=== PATIENT | male | born 1940 | race Caucasian/White ===

== ENCOUNTER 2020-01-03 18:26 | Inpatient (IN) | payer MEDICARE, OTHER ==
[2020-01-03] MEDS ORDERED: Acetaminophen 325 MG TAB PO PRN (20:15)
[2020-01-03] MEDS ORDERED: Ondansetron ODT 4 MG TAB SL PRN (20:15)
[2020-01-03] MEDS ORDERED: Nitroglycerin 2% Ointment 1 INCH/1 GM Packet TOP SCH (20:15)
[2020-01-03] MEDS ORDERED: Ondansetron PF 4 MG/2 ML Vial IVP PRN (20:15)
[2020-01-03 21:42] LABS: Troponin I 0.018 ng/mL (< 0.028)
--- NOTE | 2020-01-03 22:35 | PDOC.HHP ---
Hospitalist HPI - History of Present Illness Chest pain History of Present Illness: Mr. Ennis is a 79 year-old male with a PMHx of psoriasis who presents for chest pain. Pt reports that while rowing a boat this afternoon he developed intense 9/10 chest pain that radiated to his back. Pain was constant, stabbing, and lasted approximately 15 minuets. Pain completely resolved after this episode. Denies lightheadedness, changes in vision, weakness/numbness or SOB. Denies any personal or family history of cardiac disease. Pt states that he has no medical problems and generally stays away from hospitals. Does follow with a PCP who he sees every few years. Reports he had a recent physical and that there were no problems, but cannot remember his PCP's name. Denies N/V/D. EKG showed NSR with no ischemic changes. D-dimer mildly elevated at 0.52. CTA negative for PE or any aortic pathology. CXR no acute pathology. Initial troponin 0.012. H/H 14.9/46.6, WBC 7.6. BUN/Cr 15/1.17. Na 138, K 4.1. Pt recei carlos manuel nitro and full strength ASA. Patient transferred from [facility] to [facility] for chest pain r/o. VSS. Hospitalist ROS - Review of Systems Constitutional: denies: fever, chills, sweats, weakness, malaise, other Eyes: denies: pain, vision change, conjunctivae inflammation, eyelid inflammati on, redness, other ENT: denies: ear pain, ear discharge, nose pain, nose discharge, nose congestion, mouth pain, mouth swelling, throat pain, throat swelling, other Respiratory: denies: cough, dry, shortness of breath, hemoptysis, SOB with excertion, pleuritic pain, sputum, wheezing, other Cardiovascular: reports: chest pain. denies: palpitations, orthopnea, paroxysmal noc. dyspnea, edema, light headedness, other Gastrointestinal: denies: nausea, vomiting, abdominal pain, diarrhea, constipation, melena, hematochezia, other Genitourinary: denies: dysuria, frequency, incontinence, hematuria, retention, other Musculoskeletal: denies: neck pain, shoulder pain, arm pain, back pain, hand pain, leg pain, foot pain, other Skin: denies: rash, lesions, delores, bruising, other Neurological: denies: weakness, numbness, incoordination, change in speech, confusion, seizures, other - Medication Medications: Patient takes no home medications. NKDA. Hospitalist History - Past Medical History Other Medical History: Pt reports medical history only of psoriasis. Denies any other medical issues. - Past Surgical History Other Surgical History: Surgical history of tonsillectomy - Family History Family History: reports: no pertinent history - Social History Smoking Status: Never smoker Alcohol: reports: None Drugs: reports: none Living Situation: With Family Activity level: independent ambulation - Exam General Appearance: NAD, awake alert Eye: PERRL, anicteric sclera ENT: normocephalic atraumatic, no oropharyngeal lesions, moist mucosa Neck: supple, symmetric, no JVD, no thyromegaly, no lymphadenopathy, no carotid bruit Heart: RRR, no murmur, no gallops, no rubs, normal peripheral pulses Respiratory: CTAB, no wheezes, no rales, no ronchi, normal chest expansion, no tachypnea, normal percussion Gastrointestinal: soft, non-tender, non-distended, normal bowel sounds, no palpable masses, no hepatomegaly, no splenomegaly, no bruit Extremities: no cyanosis, no clubbing, no edema Skin: normal turgor, no lesions, no rashes Neurological: cranial nerve grossly intact, normal sensation to touch, no weakness, no focal deficits, no new deficit Musculoskeletal: normal tone, normal strength, no muscle wasting Psychiatric: normal affect, normal behavior, A&O x 3 Hospitalist Results - Labs Result Diagrams: 01/07/20 04:30 01/07/20 04:30 Lab results: Troponin I 0.018 ng/mL (< 0.028) 01/03/20 20:54 Hospitalist H&P A/P - Problem (1) Chest pain Code(s): R07.9 - CHEST PAIN, UNSPECIFIED Status: Acute - Plan Plan: Chest Pain: 79M with no pertinent medical history presents with acute onset of chest pain while rowing. Session lasted 15 minutes radiated to the back and is now completely resolved. EKG with NSR and no ischemic changes, Initial troponin 0.012. No personal or family history of cardiac disease. CTA with no acute findings, negative for PE, no aortic dissection, no esophageal tear. Since patient has no cardiac risk factors other than his age and his chest pain symptoms are atyptical, likely musculosckeletal secondary to rowing. Day team to decide if stress test is warranted. Will remain NPO after midnight. PLAN: -ASA -Trend troponins, Lipid panel -NPO at midnight, for stress test -Mg, Phos, Ca, TSH -Telemetry monitoring Elevated D-Dimer: Mildly elevated d-dimer to 0.52. CTA negative for PE. Likely secondary to recent physical exertion, but will check pt for COVID. Pt denies any respiratory complaints or any recent COVID contacts. PLAN: -COVID PCR Pulmonary nodule: Incidental pulmonary nodule noted on CT scan, one 5 mm and another 4 mm. Patient will need to follow up with his PCP in 12 months for a repeat CT scan. DVT prophylaxis: SCDs FULL CODE
[2020-01-03 23:41] LABS: Troponin I 0.016 ng/mL (< 0.028)
[2020-01-04 05:08] LABS: #Eosinphils 0.2 thou/uL (0.0-0.7); #Lymphocytes 2.3 thou/uL (1.20-3.40); #Monocytes 0.5 thou/uL (0.11-0.59); #Neutrophils 4.7 thou/uL (1.40-6.50); %Basophils 0.5 % (0.0-1.0); %Eosinophils 2.3 % (0.0-10.0); %Lymphocytes 29.2 % (21.0-51.0); %Monocytes 6.9 % (0.0-10.0); %Neutrophils 61.1 % (42.0-75.0); Hemoglobin 13.9 g/dL (14.0-18.0); Mean Corpuscular HGB CONC 34.3 g/dL (32.0-36.0); Mean Corpuscular Hemoglobin 30.9 pg (27.0-31.0); Mean Corpuscular Volume 90.1 fL (78.0-98.0); Mean Platelet Volume 7.4 fL (7.4-10.4); Platelet Count 231 thou/uL (130-400); RBC Distribution Width 12.3 % (11.5-14.5); Red Blood Cell (RBC) Count 4.49 mill/uL (4.70-6.10); White Blood Cell (WBC) Count 7.7 thou/uL (4.8-10.8)
[2020-01-04 05:30] LABS: Anion Gap 11 mmol/L (10-20); BUN (Urea Nitrogen) 14 mg/dL (8.4-25.7); Calc. Creatinine Clearance 60 mL/min (70-130); Calcium 8.8 mg/dL (7.8-10.44); Carbon Dioxide 26 mmol/L (23-31); Cardiac Risk 5.6 (Less than 4.5); Chloride 103 mmol/L (98-107); Cholesterol 168 mg/dl (< 200 Desired); Estimated GFR-MDRD 80; Glucose 89 mg/dL (83-110); HDL Cholesterol 30 mg/dL (>60 Neg Risk); LDL Cholesterol, Calculated 118 mg/dL; Magnesium 2.3 mg/dL (1.6-2.6); Potassium 4.2 mmol/L (3.5-5.1); Sodium 136 mmol/L (136-145); Triglycerides 99 mg/dL (Less than 150)
[2020-01-04 05:32] LABS: Phosphorus 2.9 mg/dL (2.3-4.7)
[2020-01-04] MEDS ORDERED: ADENOSINE 60 MG/20 ML VIAL ONE (08:55)
[2020-01-04 12:03] LABS: SARS-CoV-2 MS2 Positive; SARS-CoV-2 N Gene Negative; SARS-CoV-2 S Gene Negative; SARS-CoV-2 by NAA Not Detected (NotDetected); SARS-CoV-2 orf1ab Negative
[2020-01-04] MEDS: Aspirin 325 mg Enteric Coated Tablet PO SCH (15:31)
--- NOTE | 2020-01-04 15:34 | NM ---
MYOCARDIAL PERFUSION EVALUATION: DATE: 01/04/2020 INDICATION: 79-year-old male with chest pain. RADIOPHARMACEUTICAL: 29.7 mCi technetium-99m sestamibi IV with stress and 9.60 mCi technetium-99m sestamibi with rest. PHYSIOLOGIC DATA: The patient achieved 71% of maximal age-predicted heart rate utilizing Adenosine protocol. Please see the stress test report for full details concerning the physiologic data. FINDINGS: When comparing the rest and stress images, there is a moderate size region of moderate reduced activi ty involving the mid to apical anterior septal wall and superior septal wall. There is a small fixed defect seen in the region of the apical portion of the stress and rest images which may reflect some apical thinning or overlying soft tissue attenuation. A small infarct cannot be entirely excluded. Wi thin this region of reversible myocardial perfusion, there is dyskinesia seen on the cine images. The re is also diminished thickening noted within this region. The LVEF is estimated at 63%. IMPRESSION: Abnormal myocardial perfusion evaluation: 1. There is a moderate sized region of moderately reduced activity involving the mid to apical anter ior septal and septal wall suspicious for the presence of reversible myocardial ischemia. 2. There is a mild sized region of moderate reduced activity involving the left ventricular apex on both rest and stress images may reflect a component of overlying soft tissue attenuation, prior infar ct, or apical thinning. There is abnormal wall thickening also present within this region. 3. Abnormal dyskinetic wall motion involving the anteroseptal and superior septal wall 4. Estimated LVEF is within normal limits at 63%. POS: BH
--- NOTE | 2020-01-04 16:08 | PDOC.HOSPP ---
- Subjective Encounter Date: 01/04/20 Encounter Time: 08:00 Subjective: The patient states that he had two episodes of chest pain. He doesn't recall the details. He said one episode occurred while he was in the pool and he stated it was very severe and he had never experienced anything like that before. Another occurred supposedly while he was rowing his boat. He does not recall the details but stated it was severe. He denies cough, SOB, fevers, or chills - Objective Vital Signs & Weight: Vital Signs (12 hours) Temp Pulse Resp BP BP BP Pulse Ox 01/04/20 15:32 97.6 F 76 16 140/63 99 01/04/20 12:25 97.5 F L 81 20 171/68 H 100 01/04/20 08:08 97.5 F L 62 16 158/70 H 94 L 01/04/20 04:52 74 18 133/68 96 Weight Weight 141 lb 4.8 oz Result Diagrams: 01/04/20 04:56 01/04/20 04:56 Hospitalist ROS - Review of Systems Constitutional: denies: fever, chills - Medication Medications: Active Medications Generic Name Dose Route Start Last Admin Trade Name Freq PRN Reason Stop Dose Admin Aspirin 325 mg 01/04/20 09:00 01/04/20 15:31 Aspirin 325 Mg Enteric Coated Tablet PO Not Given DAILY ISH - Exam General Appearance: NAD, awake alert Eye: PERRL, anicteric sclera ENT: normocephalic atraumatic, no oropharyngeal lesions Neck: no JVD Heart: RRR, no murmur, no gallops, no rubs Respiratory: CTAB, no wheezes, no rales, no ronchi Gastrointestinal: soft, non-tender, non-distended, normal bowel sounds Extremities: no cyanosis, no clubbing, no edema Skin: normal turgor, no lesions, no rashes Neurological: cranial nerve grossly intact, normal sensation to touch, no focal deficits, no new deficit Musculoskeletal: normal tone, normal strength, no muscle wasting Psychiatric: normal affect, normal behavior, A&O x 3, oriented to person Hosp A/P - Plan Nuclear stress test : moderate size region of moderately reduced activity in mid to apical anterior septal and septal wall CTA chest: left lung nodule, 4 mm in the periphery of the left upper lobe. 5 mm peripheral nodule in left lower lobe This is a 79 year old male who presented with chest pain Chest pain - possibly secondary to angina - troponins negative - stress test abnormal and shows reduced activity in apical anterior septal and septal wall - will consult cardiology - CTA negative for PE PUlmonary nodule left upper lobe and left lower lobe - needs outpatient f/u in 12 months Anemia - Hb 13, stable
[2020-01-04] MEDS ORDERED: Communication Order-Pharmacy FS SCH (17:45)
--- NOTE | 2020-01-04 18:07 | CON ---
DATE OF CONSULTATION: 01/04/2020 REASON FOR CONSULTATION: Abnormal stress. HISTORY OF PRESENT ILLNESS: Mr. Ennis is a pleasant 79-year-old white gentleman, who comes to the hospital for chest pain. He had an episode of chest pain while at the dentist office just lying there. He describes it as 9/10, stabbing pain, lasted for about 50 minutes, and went away on its own. Yesterday, he was doing some physical work and he felt the pain again, so the told him to come in for further evaluation. He was admitted, ruled out, and had a stress test earlier today that had several defects including an apical defect that looks like artifact, but also an anteroseptal defect that could be ischemia, so Cardiology has been consulted for this. On my evaluation, Mr. Ennis states that he has never had a pain before except for just 2 days ago when he had the first pain at dentist office and then again yesterday the day after the dentist while he was being active. Currently, he is chest pain free. He is very concerned and afraid. He does not like to go to the hospital, so he feels very nervous about the whole situation. PAST MEDICAL HISTORY: Psoriasis. SURGICAL HISTORY: Tonsillectomy. FAMILY HISTORY: Noncontributory. SOCIAL HISTORY: No alcohol, tobacco, or drugs. REVIEW OF SYSTEMS: A 12-point review of systems was done and was found to be negative other than stated in the history of present illness. MEDICATIONS: None. ALLERGIES: NO KNOWN DRUG ALLERGIES. PHYSICAL EXAMINATION: VITAL SIGNS: Temperature 97.6, pulse 76, respiratory rate 16, saturating 99% on room air, blood pressure 140/63. GENERAL: Awake, alert, and oriented x3, in no distress. HEENT: Normocephalic and atraumatic. NECK: Supple. LUNGS: Clear. CARDIOVASCULAR: S1 and S2. No S3 or S4. No murmurs. ABDOMEN: Soft. Positive bowel sounds. EXTREMITIES: No edema. SKIN: Warm and dry. LABORATORY DATA: Laboratory work was reviewed. CBC is unremarkable. Chemistries unremarkable. Troponin was normal x2. TSH was normal. COVID-PCR was not detected. DIAGNOSTIC STUDIES: Nuclear stress test was reviewed and it showed normal LV function at 63%, moderate size, reduced activity in the mid apical anteroseptal wall suspicious for ischemia. Abnormal dyskinetic wall motion on the anteroseptal and superoseptal wall. ASSESSMENT: 1. Chest pain. 2. Abnormal nuclear stress test. PLAN: We would recommend further risk stratification with a heart catheterization. I spoke with Mr. Ennis at length about risks and benefits of the procedure. Risks including, but not limited to stroke, [place], , bleeding, need for blood transfusion, limb loss, organ loss. We talked about moderate sedation as well as drug-eluting stent versus bare metal stents. He is very good taking medications according to his . At this point, he is very nervous about having this procedure. His tells me that he will have it done, however, he still tells me that he will think about it. At this point in time, I will make him n.p.o. post midnight. I asked that he be consent, I already spoke with him about all this and we will put him on the schedule for tomorrow that he has time to think about this. If he were to decide against doing the heart catheterization, we would plan on sending him home with medications assuming that he has coronary artery disease. If he does proceed with heart catheterization, we will have further recommendations per results of coronary angiogram. Thank you for letting us to participate in the care of your patient. We will follow. Job ID: [id number]
[2020-01-05] MEDS ORDERED: Sodium Chloride 0.9% 500 ML IV SCH ×2 (00:01→13:15)
[2020-01-05 04:44] LABS: #Basophils 0.1 thou/uL (0.0-0.2); #Eosinphils 0.1 thou/uL (0.0-0.7); #Lymphocytes 1.8 thou/uL (1.20-3.40); #Monocytes 0.6 thou/uL (0.11-0.59); #Neutrophils 4.7 thou/uL (1.40-6.50); %Basophils 0.8 % (0.0-1.0); %Eosinophils 1.4 % (0.0-10.0); %Lymphocytes 24.8 % (21.0-51.0); %Monocytes 8.5 % (0.0-10.0); %Neutrophils 64.5 % (42.0-75.0); Hemoglobin 13.6 g/dL (14.0-18.0); Mean Corpuscular HGB CONC 33.9 g/dL (32.0-36.0); Mean Corpuscular Hemoglobin 30.7 pg (27.0-31.0); Mean Corpuscular Volume 90.4 fL (78.0-98.0); Mean Platelet Volume 7.3 fL (7.4-10.4); Platelet Count 237 thou/uL (130-400); RBC Distribution Width 12.3 % (11.5-14.5); Red Blood Cell (RBC) Count 4.43 mill/uL (4.70-6.10); White Blood Cell (WBC) Count 7.2 thou/uL (4.8-10.8)
[2020-01-05 05:02] LABS: Anion Gap 12 mmol/L (10-20); BUN (Urea Nitrogen) 19 mg/dL (8.4-25.7); Calc. Creatinine Clearance 57 mL/min (70-130); Calcium 8.9 mg/dL (7.8-10.44); Carbon Dioxide 24 mmol/L (23-31); Chloride 104 mmol/L (98-107); Estimated GFR-MDRD 76; Glucose 93 mg/dL (83-110); Potassium 4.2 mmol/L (3.5-5.1); Sodium 136 mmol/L (136-145)
[2020-01-05] MEDS: Aspirin 325 mg Enteric Coated Tablet PO SCH (06:14)
[2020-01-05] MEDS ORDERED: Cardioplegic Soln 1,000 ML BAG ONE (09:12)
[2020-01-05] MEDS ORDERED: DOPamine 400 MG/10 ML VIAL ONE (09:12)
[2020-01-05] MEDS ORDERED: Esmolol 100 MG/10 ML VIAL ONE (09:12)
[2020-01-05] MEDS ORDERED: Lidocaine 2% PF 100 mg/5 ml Syringe ONE (09:12)
[2020-01-05] MEDS ORDERED: Sodium Bicarb 50 MEQ/50 ML Abboject 8.4% SYRINGE ONE (09:12)
[2020-01-05] MEDS ORDERED: Heparin 30,000 units/30 ml VIAL ONE (09:12)
[2020-01-05] MEDS ORDERED: PROPOFOL 200 MG/20 ML VIAL ONE (09:12)
[2020-01-05] MEDS ORDERED: Lidocaine 1% PF 5 ML VIAL ONE (09:12)
[2020-01-05] MEDS ORDERED: Albumin 25% 25 GM/100 ML BOT ONE (09:12)
[2020-01-05] MEDS ORDERED: Rocuronium Bromide 10 MG/ML (10ML VIAL) ONE (09:12)
[2020-01-05] MEDS ORDERED: Magnesium Sulfate 1 GM/2 ML VIAL ONE (09:12)
[2020-01-05] MEDS ORDERED: Aminocaproic Acid 5 GM/20 ML VIAL ONE (09:12)
[2020-01-05] MEDS ORDERED: Papaverine 60 MG/2 ML VIAL ONE (09:12)
[2020-01-05] MEDS ORDERED: Potassium Chloride 60 MEQ/30 ML VIAL ONE (09:12)
[2020-01-05] MEDS ORDERED: Thrombin 5000 UNITS/5 ML VIAL ONE (09:12)
[2020-01-05] MEDS ORDERED: Calcium Chloride 1 GM/10 ML Abboject SYRINGE ONE (09:12)
[2020-01-05] MEDS ORDERED: Heparin 5,000 UNITS/ML VIAL ONE ×2 (09:12→13:27)
[2020-01-05] MEDS ORDERED: Lidocaine 1% (PF) 30 ML VIAL ONE (11:47)
[2020-01-05] MEDS ORDERED: Iopamidol 370 76% 100 ML VIAL ONE (12:30)
[2020-01-05] MEDS ORDERED: Midazolam HCl 2 mg/2 ml Vial ONE (12:40)
[2020-01-05] MEDS ORDERED: Fentanyl 100 MCG/2 ML VIAL ONE (12:40)
[2020-01-05] MEDS ORDERED: Sodium Chloride 0.9% 200 ML IV PRN (13:04)
[2020-01-05] MEDS ORDERED: Acetaminophen/Codeine 30-300mg Tablet PO PRN (13:04)
[2020-01-05] MEDS ORDERED: Nitroglycerin 0.4 MG TAB (25 Tab Bottle) SL PRN (13:04)
[2020-01-05] MEDS ORDERED: Albumin 5% 500 ML ONE (13:10)
[2020-01-05] MEDS ORDERED: Fentanyl 250 MCG/5 ML VIAL ONE (13:32)
[2020-01-05] MEDS ORDERED: Midazolam HCl 5 mg/5 ml Vial ONE (13:32)
[2020-01-05] MEDS ORDERED: PHENYLEPHRINE-NS 100 MCG/ML 10 ML SYRINGE ONE (15:11)
[2020-01-05] MEDS ORDERED: Bisacodyl 5 MG TAB PO PRN (17:42)
[2020-01-05] MEDS ORDERED: DOPamine 400 MG/D5W 250 ML 250 ML IVPB PRN (17:42)
[2020-01-05] MEDS ORDERED: Post-Op Insulin Drip Protocol IVPB ONE (17:42)
[2020-01-05] MEDS ORDERED: Mag-Al 1200 mg/1200 mg/30 ML UDCUP PO PRN (17:42)
[2020-01-05] MEDS ORDERED: Potassium Chloride 20 MEQ/100 ML PREMIX BAG IVPB PRN (17:42)
[2020-01-05] MEDS ORDERED: Morphine 2 MG/ML VIAL SLOW IVP PRN (17:42)
[2020-01-05] MEDS ORDERED: niCARdipine 25 MG in Sodium Chloride 0.9% 250 ML 240 ML IVPB PRN (17:42)
[2020-01-05] MEDS ORDERED: hydrALAZINE 20 MG/ML VIAL SLOW IVP PRN (17:42)
[2020-01-05] MEDS ORDERED: Ondansetron PF 4 MG/2 ML Vial IVP PRN (17:42)
[2020-01-05] MEDS ORDERED: Guaifenesin DM 100-10/5 ML UDCUP PO PRN (17:42)
[2020-01-05] MEDS ORDERED: Bisacodyl 10 MG SUPP PR PRN (17:42)
[2020-01-05] MEDS ORDERED: Hetastarch 6% 500 ML 500 ML IVPB PRN (17:42)
[2020-01-05] MEDS ORDERED: Acetaminophen 325 MG TAB PO PRN (17:42)
[2020-01-05] MEDS ORDERED: Dextrose 5% in Water 1,000 ML IV PRN (17:45)
[2020-01-05] MEDS ORDERED: HUMULIN R 100 UNITS in Sodium Chloride 0.9% 100 ML IVPB SCH (17:45)
[2020-01-05] MEDS ORDERED: Dextrose 50% Abboject 50 ML SYRINGE SLOW IVP PRN (17:45)
[2020-01-05 17:46] LABS: Actual Bicarbonate (HCO3a) 21.6 mEq/L (22-28); Base Excess (BEa) -2.3 mEq/L (-2.0 to +3.0); CO2 Tension 33.7 mmHg (35.0-45.0); Calcium, Ionized (arterial) 1.13 mmol/L (1.12-1.30); Carboxyhemoglobin (COHb) 0.3 gm% (0.0-3.0); Hemoglobin (Hb) 10.7 g/dL (14.0-18.0); O2 Tension (PaO2), arterial 253.1 mmHg (> 70.0); Potassium - ABG Lab 3.98 mmol/L (3.70-5.30); pH, Arterial 7.42 (7.35-7.45)
[2020-01-05 17:47] LABS: ALV-art Gradient 132.575 mmHg (0-20); Puncture Site ALINE
[2020-01-05] MEDS: Nitroglycerin 50 MG/250 ML BOT 250 ML IVPB PRN (17:48)
[2020-01-05] MEDS: Lactated Ringer's 1,000 ML IV SCH (17:48)
[2020-01-05 17:53] LABS: #Eosinphils 0.1 thou/uL (0.0-0.7); #Lymphocytes 1.6 thou/uL (1.20-3.40); #Monocytes 0.4 thou/uL (0.11-0.59); #Neutrophils 9.6 thou/uL (1.40-6.50); %Basophils 0.2 % (0.0-1.0); %Eosinophils 0.8 % (0.0-10.0); %Lymphocytes 13.8 % (21.0-51.0); %Monocytes 3.7 % (0.0-10.0); %Neutrophils 81.5 % (42.0-75.0); Hemoglobin 10.2 g/dL (14.0-18.0); Mean Corpuscular HGB CONC 33.7 g/dL (32.0-36.0); Mean Corpuscular Hemoglobin 30.6 pg (27.0-31.0); Mean Corpuscular Volume 90.6 fL (78.0-98.0); Platelet Count 141 thou/uL (130-400); RBC Distribution Width 12.3 % (11.5-14.5); Red Blood Cell (RBC) Count 3.35 mill/uL (4.70-6.10); White Blood Cell (WBC) Count 11.7 thou/uL (4.8-10.8)
[2020-01-05 17:59] LABS: INR-International Normal Ratio 1.5; PTT 32.8 sec (22.9-36.1); Prothrombin Time 18.4 sec (12.0-14.7)
[2020-01-05] MEDS ORDERED: Magnesium 2 GM/50 ML 2 GM in Premix Bag 1 BAG IVPB SCH (18:00)
[2020-01-05 18:14] LABS: Anion Gap 15 mmol/L (10-20); BUN (Urea Nitrogen) 18 mg/dL (8.4-25.7); Calc. Creatinine Clearance 65 mL/min (70-130); Calcium 8.1 mg/dL (7.8-10.44); Carbon Dioxide 20 mmol/L (23-31); Chloride 107 mmol/L (98-107); Estimated GFR-MDRD 89; Glucose 96 mg/dL (83-110); Potassium 4.1 mmol/L (3.5-5.1); Sodium 138 mmol/L (136-145)
--- NOTE | 2020-01-05 18:22 | RAD ---
PORTABLE CHEST: 01/05/20 COMPARISON: 01/03/20 study. FINDINGS: Postop open heart surgery. Endotracheal and NG tubes are in satisfactory position. Right subclavian line is seen. Catheter tip o verlying the distal superior vena cava. Chest tubes are in place. No pneumothorax is identified. Atel ectatic change in the left base. Some parenchymal changes also seen in the right base which is probab ly also related to atelectasis. There also appears to be a right chest tube in place. IMPRESSION: Postop open heart surgery. Atelectatic changes in both lung chisholm. POS: SHIRAZ
--- NOTE | 2020-01-05 18:42 | CON ---
DATE OF CONSULTATION: HISTORY OF PRESENT ILLNESS: The patient is a 79-year-old gentleman, who lives in [place], [place] with his , who has had two episodes of chest discomfort in the past 48 hours at rest. He presented to the emergency room where his troponin was negative. However, stress test was significantly abnormal in distribution of the anterior apical wall. Cardiac cath was done by Dr. White this afternoon showing about a 70% to 80% distal left main, 100% LAD, ostial right stenosis of about 80% as well as a distal right stenosis of about 80% to 90%. The LAD fills faintly from right-sided collaterals. Circumflex had high-grade lesions and a large OM1, a large OM3, and a smaller OM4. LV function was normal by stress and by LV gram today. PAST MEDICAL HISTORY: Negative. The patient was on no medications. He is a nonsmoker, nondrinker. PAST SURGICAL HISTORY: Includes tonsillectomy. PHYSICAL EXAMINATION: GENERAL: An elderly gentleman, somewhat confused, but comfortable. CARDIAC: Regular rate and rhythm. No murmurs. LUNGS: Clear to auscultation. ABDOMEN: Soft and nontender. EXTREMITIES: He has strong posterior tibial pulses bilaterally and a dressing on his right groin. PLAN: At this time is for multivessel bypass grafting and informed consent has been obtained. Job ID: [id number]
--- NOTE | 2020-01-05 19:14 | PDOC.HOSPP ---
- Subjective Encounter Date: 01/05/20 Encounter Time: 19:12 Subjective: The patient underwent cardiac cath today. He was found to have severe 3 vessel disease. He underwent urgent CABG. He is now in CCU and intubated He is intubated. He is starting to wake up - Objective Vital Signs & Weight: Vital Signs (12 hours) Temp Pulse Resp BP Pulse Ox 01/05/20 18:00 97.7 F 01/05/20 17:42 71 01/05/20 07:56 97.4 F L 77 16 165/70 H 99 Weight Weight 141 lb 4.8 oz Most Recent Monitor Data Heart Rate from ECG 85 NIBP 119/67 NIBP BP-Mean 84 Respiration from ECG 10 SpO2 100 I&O: 01/04/20 01/05/20 01/06/20 06:59 06:59 06:59 Intake Total 480 91.6 Output Total 240 Balance 480 -148.4 Result Diagrams: 01/05/20 17:40 01/05/20 17:40 Additional Labs: Accuchecks 01/05/20 01/05/20 17:44 16:44 POC Glucose 90 88 Hospitalist ROS - Review of Systems ROS unobtainable: due to endotracheal tube - Medication Medications: Active Medications Generic Name Dose Route Start Last Admin Trade Name Freq PRN Reason Stop Dose Admin Nitroglycerin/Dextrose 250 mls @ 0 mls/hr 01/05/20 17:42 01/05/20 17:48 Nitroglycerin 50 Mg/250 Ml Bot IVPB 250 mls PRN PRN Administration To Maintain SBP< 140mmHG Protocol Titrate Lactated Ringer's 1,000 mls @ 75 mls/hr 01/05/20 17:42 01/05/20 17:48 Lactated Ringer's IV 1,000 mls .[id number] Administration - Exam General - other findings: intubated Eye: PERRL, anicteric sclera ENT: normocephalic atraumatic, no oropharyngeal lesions Neck: no JVD Heart: RRR, no murmur, no gallops, no rubs Respiratory: CTAB, no wheezes, no rales, no ronchi Gastrointestinal: soft, non-tender, non-distended, normal bowel sounds Extremities: no cyanosis, no clubbing, no edema Skin: normal turgor, no lesions, no rashes Neurological - other findings: wiggles toes to command Musculoskeletal: normal tone, normal strength, no muscle wasting Psychiatric: normal affect, normal behavior, A&O x 3 Hosp A/P - Plan Nuclear stress test : moderate size region of moderately reduced activity in mid to apical anterior septal and septal wall CTA chest: left lung nodule, 4 mm in the periphery of the left upper lobe. 5 mm peripheral nodule in left lower lobe Cardiac cath: severe OM1/OM2/OM3, severe ostial RCA and mid RCA, occluded LAD This is a 79 year old male who presented with chest pain Chest pain secondary to severe CAD s/p CABG - CTA negative for PE, troponins negative - stress test abnormal and shows reduced activity in apical anterior septal and septal wall. Cath showed severe 3 vessel disease. He is s/p CABG today Leukocytosis - WBC up to 11.7, chest X ray shows atelectasis. Continue IV cefazolin PUlmonary nodule left upper lobe and left lower lobe - needs outpatient f/u in 12 months Anemia - Hb 10.2, will monitor
[2020-01-05] MEDS: Ketorolac Tromethamine 30 MG/ML VIAL IVP SCH (19:16)
[2020-01-05 21:19] LABS: Actual Bicarbonate (HCO3a) 18.9 mEq/L (22-28); Base Excess (BEa) -6.8 mEq/L (-2.0 to +3.0); CO2 Tension 38.3 mmHg (35.0-45.0); Calcium, Ionized (arterial) 1.09 mmol/L (1.12-1.30); Carboxyhemoglobin (COHb) 0.3 gm% (0.0-3.0); Hemoglobin (Hb) 12.2 g/dL (14.0-18.0); O2 Tension (PaO2), arterial 160.9 mmHg (> 70.0); Potassium - ABG Lab 3.57 mmol/L (3.70-5.30); pH, Arterial 7.31 (7.35-7.45)
[2020-01-05 21:32] LABS: Puncture Site LINE
[2020-01-05 21:33] LABS: ALV-art Gradient 76.425 mmHg (0-20)
[2020-01-05] MEDS: CEFAZOLIN 2 GM in Premix Bag 1 BAG IVPB SCH (21:37)
[2020-01-05] MEDS: Atorvastatin Calcium 10 MG TAB PO SCH (21:37)
[2020-01-05] MEDS: Famotidine/PF 20 mg/2ml Vial SLOW IVP SCH (21:37)
[2020-01-05] MEDS: Fentanyl 100 MCG/2 ML VIAL SLOW IVP PRN (21:51)
[2020-01-05 23:53] LABS: Hemoglobin 11.6 g/dL (14.0-18.0)
[2020-01-06 00:06] LABS: Potassium 4.3 mmol/L (3.5-5.1)
[2020-01-06] MEDS: Ketorolac Tromethamine 30 MG/ML VIAL IVP SCH ×2 (00:48→05:17)
[2020-01-06] MEDS: Insulin Regular 300 UNITS/3 ML VIAL SC PRN ×2 (03:23→06:23)
[2020-01-06 05:01] LABS: #Lymphocytes 0.7 thou/uL (1.20-3.40); #Monocytes 0.7 thou/uL (0.11-0.59); #Neutrophils 9.6 thou/uL (1.40-6.50); %Basophils 0.2 % (0.0-1.0); %Lymphocytes 6.6 % (21.0-51.0); %Monocytes 5.9 % (0.0-10.0); %Neutrophils 87.3 % (42.0-75.0); Hemoglobin 11.4 g/dL (14.0-18.0); Mean Corpuscular HGB CONC 34.3 g/dL (32.0-36.0); Mean Corpuscular Hemoglobin 31.3 pg (27.0-31.0); Mean Corpuscular Volume 91.2 fL (78.0-98.0); Mean Platelet Volume 7.7 fL (7.4-10.4); Platelet Count 173 thou/uL (130-400); RBC Distribution Width 12.3 % (11.5-14.5); Red Blood Cell (RBC) Count 3.64 mill/uL (4.70-6.10)
[2020-01-06] MEDS: CEFAZOLIN 2 GM in Premix Bag 1 BAG IVPB SCH ×2 (05:17→13:51)
[2020-01-06 05:22] LABS: Anion Gap 14 mmol/L (10-20); BUN (Urea Nitrogen) 19 mg/dL (8.4-25.7); Calc. Creatinine Clearance 50 mL/min (70-130); Calcium 8.1 mg/dL (7.8-10.44); Carbon Dioxide 24 mmol/L (23-31); Chloride 109 mmol/L (98-107); Estimated GFR-MDRD 63; Glucose 147 mg/dL (83-110); Potassium 3.7 mmol/L (3.5-5.1); Sodium 143 mmol/L (136-145)
[2020-01-06] MEDS: Lactated Ringer's 1,000 ML IV SCH ×2 (06:19→13:47)
[2020-01-06] MEDS: Famotidine/PF 20 mg/2ml Vial SLOW IVP SCH ×2 (08:15→21:22)
[2020-01-06] MEDS: Aspirin 325 MG TAB PO SCH (08:16)
--- NOTE | 2020-01-06 08:54 | PDOC.CPN ---
- Subjective Date: 01/06/20 Time: 11:29 Interval history: Pt s/p CABG. Pt confused and combative. Required [address] as well - Objective Allergies/Adverse Reactions: Allergies Allergy/AdvReac Type Severity Reaction Status Date / Time No Known Allergies Allergy Verified 01/03/20 22:44 Visit Medications: Current Medications Acetaminophen (Acetaminophen 325 Mg Tab) 650 mg PO Q6H PRN PRN Reason: Headache/Fever Or Mild Pain Al Hydroxide/Mg Hydroxide (Mag-Al 1200 Mg/1200 Mg/30 Ml Udcup) 30 ml PO Q4H PRN PRN Reason: Indigestion Albumin Human (Albumin 5% 12.5 Gm/250 Ml Bot) 12.5 gm IVPB Q6H PRN PRN Reason: To Maintain SBP> 90 mmHG Stop: 01/06/20 17:43 Albumin Human (Albumin 5% 12.5 Gm/250 Ml Bot) 25 gm IVPB Q6H PRN PRN Reason: To Maintain SBP > 90 mmHG Stop: 01/06/20 17:43 Albuterol/Ipratropium (Ipratropium/Albuterol Sulfate 3 Ml Neb) 3 ml NEB [id number] PRN PRN Reason: SOB Aspirin (Aspirin 325 Mg Tab) 325 mg PO DAILY [facility] Last Admin: 01/06/20 08:16 Dose: 325 mg Documented by: Atorvastatin Calcium (Atorvastatin Calcium 10 Mg Tab) 10 mg PO QPM [facility] Last Admin: 01/05/20 21:37 Dose: Not Given Documented by: Bisacodyl (Bisacodyl 5 Mg Tab) 10 mg PO Q12H PRN PRN Reason: Constipation Bisacodyl (Bisacodyl 10 Mg Supp) 10 mg LA Q12H PRN PRN Reason: Constipation Dextrose/Water (Dextrose 50% Abboject 50 Ml Syringe) 25 gm SLOW IVP PRN PRN PRN Reason: PER HYPOGLYCEMIC PROTOCOL Famotidine (Famotidine/Pf 20 Mg/2ml Vial) 20 mg SLOW IVP Q12HR [facility] Last Admin: 01/06/20 08:15 Dose: 20 mg Documented by: Fentanyl (Fentanyl 100 Mcg/2 Ml Vial) 25 mcg SLOW IVP Q2H PRN PRN Reason: Moderate Pain (4-6) Stop: 01/07/20 17:12 Last Admin: 01/05/20 21:51 Dose: 25 mcg Documented by: Glucagon (Glucagon 1 Mg/Ml Vial) 1 mg SC PRN PRN PRN Reason: PER HYPOGLYCEMIC PROTOCOL Guaifenesin/Dextromethorphan (Guaifenesin Dm 100-10/5 Ml Udcup) 15 ml PO Q4H PRN PRN Reason: Cough Hydralazine HCl (Hydralazine 20 Mg/Ml Vial) 10 mg SLOW IVP Q6H PRN PRN Reason: To Maintain SBP< 140mmHG Hetastarch/Sodium Chloride (Hespan) 500 mls @ 0 mls/hr IVPB PRN PRN PRN Reason: To Maintain SBP > 90mmHg Stop: 01/06/20 17:12 Nitroglycerin/Dextrose (Nitroglycerin 50 Mg/250 Ml Bot) 250 mls @ 0 mls/hr IVPB PRN PRN; Protocol PRN Reason: To Maintain SBP< 140mmHG Last Admin: 01/05/20 17:48 Dose: 250 mls Documented by: Dopamine HCl/Dextrose (Dopamine 400 Mg/D5w 250 Ml) 250 mls @ 0 mls/hr IVPB PRN PRN; Protocol PRN Reason: To maintain SBP > 90 mmHG Nicardipine HCl 25 mg/ Sodium (Chloride) 250 mls @ 0 mls/hr IVPB INF PRN; Protocol PRN Reason: To Maintain SBP< 140mmHG Cefazolin Sodium/Dextrose 2 gm (/ Device) 50 mls @ 100 mls/hr IVPB Q8HR [facility] Stop: 01/06/20 14:29 Last Admin: 01/06/20 05:17 Dose: 50 mls Documented by: Lactated Ringer's (Lactated Ringer's) 1,000 mls @ 75 mls/hr IV .[id number] [facility] Last Admin: 01/06/20 06:19 Dose: 1,000 mls Documented by: Insulin Human Regular 100 (units/ Sodium Chloride) 101 mls @ 0 mls/hr IVPB INF ISH; Protocol Dextrose/Water (D5w) 1,000 mls @ 0 mls/hr IV INF PRN PRN Reason: PRN HYPOGLYCEMIC PROTOCOL Insulin Human Regular (Insulin Regular 300 Units/3 Ml Vial) 0 units SC Q4H PRN; Protocol PRN Reason: POST OP SLIDING SCALE Last Admin: 01/06/20 06:23 Dose: 3 units Documented by: Ketorolac Tromethamine (Ketorolac Tromethamine 30 Mg/Ml Vial) 15 mg IVP Q6HR ISH Stop: 01/06/20 12:00 Last Admin: 01/06/20 05:17 Dose: 15 mg Documented by: Morphine Sulfate (Morphine 2 Mg/Ml Vial) 2 mg SLOW IVP Q15MIN PRN PRN Reason: Severe Pain (7-10) Last Admin: 01/05/20 19:17 Dose: 2 mg Documented by: Ondansetron HCl (Ondansetron Pf 4 Mg/2 Ml Vial) 4 mg IVP Q6H PRN PRN Reason: Nausea/Vomiting Potassium Chloride (Potassium Chloride 20 Meq/100 Ml Premix Bag) 20 meq IVPB PRN PRN PRN Reason: K level </= 4.0 Last Admin: 01/06/20 05:56 Dose: 20 meq Documented by: Vital Signs & Weight: Vital Signs Temp Pulse Ox 01/06/20 07:58 99 01/06/20 04:00 98.4 F 96 01/06/20 00:00 97.9 F 01/05/20 22:00 98.1 F Weight 144 lb 6.444 oz - Physical Exam General: other (See HPI) Neck: no masses Cardiac: regular rate Lungs: normal exam Neuro: grossly intact - Labs Result Diagrams: 01/06/20 04:50 01/06/20 04:50 Troponin/CKMB Troponin I 0.016 ng/mL (< 0.028) 01/03/20 23:06 - Assessment/Plan Assessment/Plan: A/p: CAD s/p CABG Roe lauren Spoke with She understands the use of medication to help him Add statin and BB once pt improves mentally
[2020-01-06] MEDS: Fentanyl 100 MCG/2 ML VIAL SLOW IVP PRN (09:00)
[2020-01-06] MEDS ORDERED: Lorazepam 1 MG TAB PO PRN (09:34)
[2020-01-06] MEDS ORDERED: Ziprasidone 20 MG VIAL IM SCH (09:45)
--- NOTE | 2020-01-06 13:14 | RAD ---
PORTABLE CHEST: HISTORY: Postop open heart surgery. COMPARISON: 01/05/2020 exam. FINDINGS: Heart size is within normal limits. Postop sternotomy changes are present. Right and left and centr al chest tubes all remain in place. Some of the atelectatic change in the right mid lung field and l eft base has improved. Endotracheal tube has been removed. IMPRESSION: Improving atelectasis. Interval removal of the endotracheal tube. POS: OFF
[2020-01-06] MEDS: Ziprasidone 20 MG VIAL IM PRN (16:31)
[2020-01-06] MEDS: Lorazepam 2 MG/ML VIAL SLOW IVP PRN ×2 (16:32→23:33)
--- NOTE | 2020-01-06 17:49 | PDOC.HOSPP ---
- Subjective Encounter Date: 01/06/20 Encounter Time: 17:45 Subjective: f/u s/p CABG x - Objective Vital Signs & Weight: Vital Signs (12 hours) Temp Pulse Ox 01/06/20 16:00 97.8 F 01/06/20 12:00 97.9 F 01/06/20 09:00 98.0 F 01/06/20 07:58 99 Weight Weight 144 lb 6.444 oz Most Recent Monitor Data Heart Rate from ECG 98 NIBP 123/70 NIBP BP-Mean 87 Respiration from ECG 21 SpO2 100 I&O: 01/05/20 01/06/20 01/07/20 06:59 06:59 06:59 Intake Total 480 984.6 100 Output Total 910 70 Balance 480 74.6 30 Result Diagrams: 01/06/20 04:50 01/06/20 04:50 Additional Labs: Accuchecks 01/05/20 20:54 POC Glucose 101 H Laboratory Tests 01/03/20 20:45 SARS-CoV-2 (PCR) Not Detected Radiology Reviewed by me: Yes (PCXR - improved aeration bilat) EKG Reviewed by me: Yes (Tele - sinus tach in low-100's) Hospitalist ROS - Medication Medications: Active Medications Generic Name Dose Route Start Last Admin Trade Name Freq PRN Reason Stop Dose Admin Aspirin 325 mg 01/06/20 09:00 01/06/20 08:16 Aspirin 325 Mg Tab PO 325 mg DAILY ISH Administration Atorvastatin Calcium 10 mg 01/05/20 21:00 01/05/20 21:37 Atorvastatin Calcium 10 Mg Tab PO Not Given QPM ISH Famotidine 20 mg 01/05/20 21:00 01/06/20 08:15 Famotidine/Pf 20 Mg/2ml Vial SLOW IVP 20 mg Q12HR ISH Administration Nitroglycerin/Dextrose 250 mls @ 0 mls/hr 01/05/20 17:42 01/05/20 17:48 Nitroglycerin 50 Mg/250 Ml Bot IVPB 250 mls PRN PRN Administration To Maintain SBP< 140mmHG Protocol Titrate Lactated Ringer's 1,000 mls @ 50 mls/hr 01/06/20 10:29 01/06/20 13:47 Lactated Ringer's IV 1,000 mls .Q20H ISH Administration Lorazepam 1 mg 01/06/20 16:03 01/06/20 16:32 Lorazepam 2 Mg/Ml Vial SLOW IVP 1 mg Q6H PRN Administration Agitation Potassium Chloride 20 meq 01/05/20 17:42 01/06/20 05:56 Potassium Chloride 20 Meq/100 Ml Premix Bag IVPB 20 meq PRN PRN Administration K level </= 4.0 Ziprasidone 10 mg 01/06/20 10:27 01/06/20 16:31 Ziprasidone 20 Mg Vial IM 10 mg Q4H PRN Administration Agitation - Exam General - other findings: somnolent, mumbling Eye: PERRL, anicteric sclera ENT: normocephalic atraumatic, no oropharyngeal lesions ENT - other findings: multiple missing teeth, severe dental caries Neck: supple, symmetric, no JVD, no thyromegaly, no lymphadenopathy Heart: RRR, no gallops, no rubs, normal peripheral pulses Heart - other findings: S1, S2 with tachycardia Respiratory: CTAB, no wheezes, no rales, no ronchi Gastrointestinal: soft, non-tender, non-distended, normal bowel sounds, no palpable masses Extremities: no cyanosis, no clubbing, no edema Skin: normal turgor Neurological: cranial nerve grossly intact Musculoskeletal: generalized weakness, diffuse muscle atrophy Psychiatric: oriented to person, somnolent, lethargic Hosp A/P (1) Acute metabolic encephalopathy Code(s): G93.41 - METABOLIC ENCEPHALOPATHY Status: Acute Plan: Likely multifactorial process, supportive mgmt, re-orientation techniques, Geodon for combativeness (2) Acute delirium Code(s): R41.0 - DISORIENTATION, UNSPECIFIED Status: Acute Plan: See #1 above (3) CAD (coronary artery disease) Code(s): I25.10 - ATHSCL HEART DISEASE OF [place] CORONARY ARTERY W/O ANG PCTRS Status: Chronic Plan: s/p CABG POD #1, continue routine post-CABG protocol, Cardiac rehab when stable (4) Dementia Code(s): F03.90 - UNSPECIFIED DEMENTIA WITHOUT BEHAVIORAL DISTURBANCE Status: Chronic Plan: Suspected chronic, supportive mgmt, outpt mgmt, may need Aricept - Plan PT/OT, manager social responsibility, respiratory therapy, incentive spirometry, DVT proph w/SCDs Continue routine [facility]AB[facility] 4-point restraints for safety Continue med mgmt Continue ASA/Lipitor PCXR in am AM lab: BMP, CBC
[2020-01-06] MEDS: Nitroglycerin 50 MG/250 ML BOT 250 ML IVPB PRN (21:23)
[2020-01-06] MEDS: Atorvastatin Calcium 10 MG TAB PO SCH (21:34)
[2020-01-07] MEDS ORDERED: Sodium Chloride 0.9% 500 ML IVPB PRN (03:35)
[2020-01-07] MEDS ORDERED: Diltiazem HCl 125 MG, Admixture Fee 1 EACH in Sodium Chloride 0.9% 100 ML IVPB SCH (03:45)
[2020-01-07] MEDS ORDERED: Digoxin 0.5 MG/2 ML AMP SLOW IVP SCH ×2 (03:45→07:45)
[2020-01-07] MEDS ORDERED: Acetaminophen 650 MG Suppository PR SCH (03:45)
[2020-01-07] MEDS: Ziprasidone 20 MG VIAL IM PRN (04:00)
[2020-01-07 04:50] LABS: #Lymphocytes 1.1 thou/uL (1.20-3.40); #Monocytes 0.8 thou/uL (0.11-0.59); #Neutrophils 12.3 thou/uL (1.40-6.50); %Basophils 0.1 % (0.0-1.0); %Eosinophils 0.1 % (0.0-10.0); %Lymphocytes 7.7 % (21.0-51.0); %Monocytes 5.7 % (0.0-10.0); %Neutrophils 86.4 % (42.0-75.0); Hemoglobin 10.9 g/dL (14.0-18.0); Mean Corpuscular Hemoglobin 31.2 pg (27.0-31.0); Mean Corpuscular Volume 91.6 fL (78.0-98.0); Mean Platelet Volume 8.1 fL (7.4-10.4); Platelet Count 149 thou/uL (130-400); RBC Distribution Width 12.4 % (11.5-14.5); Red Blood Cell (RBC) Count 3.51 mill/uL (4.70-6.10); White Blood Cell (WBC) Count 14.3 thou/uL (4.8-10.8)
[2020-01-07 05:13] LABS: Anion Gap 14 mmol/L (10-20); BUN (Urea Nitrogen) 23 mg/dL (8.4-25.7); Calc. Creatinine Clearance 66 mL/min (70-130); Calcium 8.1 mg/dL (7.8-10.44); Carbon Dioxide 23 mmol/L (23-31); Chloride 110 mmol/L (98-107); Estimated GFR-MDRD 88; Glucose 126 mg/dL (83-110); Sodium 143 mmol/L (136-145)
[2020-01-07] MEDS: Lorazepam 2 MG/ML VIAL SLOW IVP PRN (08:21)
--- NOTE | 2020-01-07 11:06 | RAD ---
PORTABLE CHEST: HISTORY: Postop open heart surgery. COMPARISON: Prior day's study. FINDINGS: Heart size is enlarged. There is postop sternotomy change. A right subclavian line is present. The re are increasing bibasilar lung changes and right mid lung field parenchymal changes. IMPRESSION: Worsening bibasilar and right mid lung field parenchymal changes. Some of this could represent atele ctasis, although the changes in the right lung could represent developing infiltrative change. saad nued followup is recommended. POS: OFF
--- NOTE | 2020-01-07 11:14 | PRG ---
DATE OF SERVICE: 01/07/2020 SUBJECTIVE: Mr. Ennis last evening developed atrial fibrillation with rapid ventricular response. I was called and placed him on IV Cardizem. He is currently sedated on Geodon. OBJECTIVE: VITAL SIGNS: Blood pressure 129/75, pulse 100, respirations 20. LUNGS: Clear to auscultation. HEART: Irregularly irregular. ABDOMEN: Soft, nontender, nondistended. EXTREMITIES: No edema. PERTINENT LABORATORY DATA: Hemoglobin 10.9, hematocrit 32.2. Creatinine 0.84. IMPRESSION: 1. Coronary artery disease, status post bypass surgery. 2. Postop atrial fibrillation. 3. Confusion. RECOMMENDATIONS: Continue support with IV Cardizem. We will add IV amiodarone in hopes of cardioversion. The patient was not on a beta-albert prior to this event. We will add low-dose beta-albert therapy. Job ID: [id number]
[2020-01-07] MEDS: Amiodarone 450 MG in Dextrose 5% in Water 250 ML IVPB SCH ×3 (11:36→19:48)
[2020-01-07] MEDS: Lactated Ringer's 1,000 ML IV SCH (11:37)
[2020-01-07] MEDS: Aspirin 325 MG TAB PO SCH (11:45)
[2020-01-07] MEDS: Digoxin 0.5 MG/2 ML AMP SLOW IVP SCH ×2 (11:47→12:05)
[2020-01-07] MEDS: Famotidine/PF 20 mg/2ml Vial SLOW IVP SCH ×2 (11:49→21:12)
--- NOTE | 2020-01-07 16:44 | PDOC.HOSPP ---
- Subjective Encounter Date: 01/07/20 Encounter Time: 16:45 Subjective: f/u for encephalopathy/delirium post-CABG. Remains on Geodon for agitation and combativeness. - Objective Vital Signs & Weight: Vital Signs (12 hours) Temp Pulse Pulse Ox 01/07/20 15:31 96.6 F L 01/07/20 15:00 97 01/07/20 12:05 118 H 01/07/20 12:00 97.8 F 01/07/20 08:22 173 H 01/07/20 08:00 98.6 F 100 Weight Weight 138 lb 7.205 oz Most Recent Monitor Data Heart Rate from ECG 90 NIBP 126/60 NIBP BP-Mean 82 Respiration from ECG 21 SpO2 97 I&O: 01/06/20 01/07/20 01/08/20 06:59 06:59 06:59 Intake Total 984.6 1837.5 73 Output Total 910 320 Balance 74.6 1517.5 73 Result Diagrams: 01/07/20 04:30 01/07/20 04:30 Radiology Reviewed by me: Yes (PCXR - increased infiltrates bibasilar, ? atelectasis) EKG Reviewed by me: Yes (Tele - A-fib RVR) Hospitalist ROS - Medication Medications: Active Medications Generic Name Dose Route Start Last Admin Trade Name Freq PRN Reason Stop Dose Admin Aspirin 325 mg 01/06/20 09:00 01/07/20 11:45 Aspirin 325 Mg Tab PO Not Given DAILY ISH Atorvastatin Calcium 10 mg 01/05/20 21:00 01/06/20 21:34 Atorvastatin Calcium 10 Mg Tab PO Not Given QPM ISH Digoxin 0.25 mg 01/07/20 09:00 01/07/20 12:05 Digoxin 0.5 Mg/2 Ml Amp SLOW IVP 0.25 mg DAILY ISH Administration Famotidine 20 mg 01/05/20 21:00 01/07/20 11:49 Famotidine/Pf 20 Mg/2ml Vial SLOW IVP 20 mg Q12HR ISH Administration Lactated Ringer's 1,000 mls @ 50 mls/hr 01/06/20 10:29 01/07/20 11:37 Lactated Ringer's IV 1,000 mls .Q20H ISH Administration Diltiazem HCl 125 mg/ 125 mls @ 0 mls/hr 01/07/20 03:45 01/07/20 03:42 Miscellaneous Medication 1 IVPB 125 mls each/ Sodium Chloride INF ISH Administration Protocol Per Protocol Sodium Chloride 500 mls @ 0 mls/hr 01/07/20 03:35 01/07/20 03:59 Normal Saline 0.9% IVPB 01/08/20 03:36 500 mls ONE PRN Administration SBP Less Than 100 As Directed Dexmedetomidine HCl 400 mcg/ 100 mls @ 0 mls/hr 01/07/20 11:00 01/07/20 11:38 Sodium Chloride IVPB 100 mls INF ISH Administration Protocol Per Protocol Amiodarone HCl 450 mg/ 259 mls @ 0 mls/hr 01/07/20 11:00 01/07/20 11:38 Dextrose/Water IVPB 259 mls INF ISH Administration Protocol Per Protocol Lorazepam 1 mg 01/06/20 16:03 01/07/20 08:21 Lorazepam 2 Mg/Ml Vial SLOW IVP 1 mg Q6H PRN Administration Agitation Sodium Chloride 10 ml 01/06/20 21:00 01/07/20 11:37 Flush - Normal Saline 10 Ml Syringe IVF 10 ml Q12HR ISH Administration Ziprasidone 10 mg 01/06/20 10:27 01/07/20 04:00 Ziprasidone 20 Mg Vial IM 10 mg Q4H PRN Administration Agitation - Exam General Appearance: ill appearing General - other findings: somnolent Eye: PERRL, anicteric sclera ENT: normocephalic atraumatic ENT - other findings: severe dental caries Neck: supple, symmetric, no JVD, no thyromegaly, no lymphadenopathy Heart: no gallops, no rubs, normal peripheral pulses, irregular Heart - other findings: S1, S2 Respiratory - other findings: few scattered rhonchi, diminished in bases Gastrointestinal: soft, non-tender, non-distended, normal bowel sounds, no palpable masses Extremities: no cyanosis, no clubbing, no edema Skin: normal turgor Skin - other findings: chest surgical incision CDI Neurological: cranial nerve grossly intact, no new deficit Musculoskeletal: generalized weakness Psychiatric: flat affect, somnolent, lethargic Hosp A/P (1) Acute metabolic encephalopathy Code(s): G93.41 - METABOLIC ENCEPHALOPATHY Status: Acute Plan: Persistent post-CABG, continue Geodon for sedation, re-orientation techniques (2) Acute delirium Code(s): R41.0 - DISORIENTATION, UNSPECIFIED Status: Acute Plan: See above (3) CAD (coronary artery disease) Code(s): I25.10 - ATHSCL HEART DISEASE OF [place] CORONARY ARTERY W/O ANG PCTRS Status: Chronic (4) Dementia Code(s): F03.90 - UNSPECIFIED DEMENTIA WITHOUT BEHAVIORAL DISTURBANCE Status: Chronic Plan: Likely advanced at baseline, continue supportive mgmt, Geodon for combativeness (5) Paroxysmal atrial fibrillation with RVR Code(s): I48.0 - PAROXYSMAL ATRIAL FIBRILLATION Status: Acute Plan: Continue Amiodarone IV, Diltiazem gtt, rate-control strategy, ASA, Metoprolol - Plan PT/OT, aids social worker, respiratory therapy, out of bed/ambulate, DVT proph w/SCDs Continue routine post-CABG protocol Geodon for combativeness 4-point restraints for safety Continue med mgmt Continue ASA/Lipitor PCXR in am AM lab: BMP, CBC
--- NOTE | 2020-01-07 19:31 | OP ---
DATE OF PROCEDURE: 01/05/2020 PREOPERATIVE DIAGNOSIS: Coronary artery disease. PROCEDURE PERFORMED: Coronary artery bypass graft x4, good quality MOORE to a 1.25 mm LAD, saphenous vein graft somewhat large to a 1.5 mm PDA, a 2 mm OM1, 1.5 mm to 2 mm OM2. CLINICAL REVIEWER: Dr. Ashby. TRANSFUSION: None. DESCRIPTION OF PROCEDURE: After adequate anesthesia had been obtained, Dr. Ashby did an endovascular vein harvest of the left greater saphenous vein while I performed a median sternotomy. The right pleura was widely open with a sternal saw and was not closed. The left internal mammary artery was harvested entering the left pleura and the patient was heparinized. Mammary divided distally and passed posterior to the thymus gland through an incision in the pericardium. Aorta and right atrium were cannulated. Cardiopulmonary bypass begun. Aorta was crossclamped and a liter of cold blood cardioplegia was given. The anterior apical wall was somewhat ischemic appearing, noncontractile. There was one small area of scar. Individually, the PDA, OM1, OM2 grafts were completed and finally MOORE to LAD passing a 1 mm probe prior to completing the suture line. Cross-clamp was removed. Partial occluding clamp placed in the PDA and OM vein grafts were placed on the aortic root and marked with a ring. Partial occluding clamp was removed and the OM2 vein graft was anastomosed to the side of the OM1 vein graft about 2 cm from the aortic root. The patient was then weaned from cardiopulmonary bypass. Cannula was removed and protamine given systemically while aortic cannulation site was secured with a Prolene. Sternum was then reapproximated after ensuring good hemostasis and the graft laid nicely with #7 interrupted wire using vancomycin paste on the sternal edges, platelet-rich blood, and platelet-poor plasma. Subcutaneous tissue and skin were closed in layers. Job ID: [id number]
[2020-01-07] MEDS: Enoxaparin Sodium 30 MG/0.3 ML SYRINGE SC SCH (21:10)
[2020-01-07] MEDS: Atorvastatin Calcium 10 MG TAB PO SCH (21:12)
[2020-01-07] MEDS: Metoprolol Tartrate 25 MG TAB PO SCH (21:13)
[2020-01-08 04:53] LABS: #Lymphocytes 1.1 thou/uL (1.20-3.40); #Monocytes 0.5 thou/uL (0.11-0.59); %Basophils 0.3 % (0.0-1.0); %Eosinophils 0.4 % (0.0-10.0); %Lymphocytes 9.5 % (21.0-51.0); %Monocytes 4.3 % (0.0-10.0); %Neutrophils 85.6 % (42.0-75.0); Hemoglobin 11.7 g/dL (14.0-18.0); Mean Corpuscular HGB CONC 33.7 g/dL (32.0-36.0); Mean Corpuscular Hemoglobin 30.5 pg (27.0-31.0); Mean Corpuscular Volume 90.6 fL (78.0-98.0); Mean Platelet Volume 8.1 fL (7.4-10.4); Platelet Count 134 thou/uL (130-400); Red Blood Cell (RBC) Count 3.83 mill/uL (4.70-6.10); White Blood Cell (WBC) Count 11.7 thou/uL (4.8-10.8)
[2020-01-08] MEDS: Lactated Ringer's 1,000 ML IV SCH ×2 (05:07→23:30)
[2020-01-08 05:20] LABS: Anion Gap 12 mmol/L (10-20); BUN (Urea Nitrogen) 19 mg/dL (8.4-25.7); Calc. Creatinine Clearance 82 mL/min (70-130); Calcium 8.6 mg/dL (7.8-10.44); Carbon Dioxide 26 mmol/L (23-31); Chloride 104 mmol/L (98-107); Estimated GFR-MDRD Greater than 90; Glucose 112 mg/dL (83-110); Potassium 3.7 mmol/L (3.5-5.1); Sodium 138 mmol/L (136-145)
--- NOTE | 2020-01-08 08:40 | RAD ---
PORTABLE CHEST 1 VIEW: Date: 01/08/2020 Time: 0359 hours HISTORY: Postop open heart surgery. COMPARISON: Previous day. FINDINGS/IMPRESSION: Changes of median sternotomy again seen. Right-sided central line remains in place. The heart size is normal. Parenchymal changes in the right lung demonstrate mild interval improvement with small opaci ty in the right mid lung. No pneumothoraces or large effusions are seen. POS: OFF
[2020-01-08] MEDS: Metoprolol Tartrate 25 MG TAB PO SCH ×2 (09:57→21:05)
[2020-01-08] MEDS: Famotidine/PF 20 mg/2ml Vial SLOW IVP SCH ×2 (09:57→21:06)
[2020-01-08] MEDS: Aspirin 325 MG TAB PO SCH (09:57)
[2020-01-08] MEDS: Polyethylene Glycol 3350 17 GM Packet PO SCH ×2 (09:58→10:32)
[2020-01-08] MEDS: Amiodarone 450 MG in Dextrose 5% in Water 250 ML IVPB SCH ×2 (10:50→23:31)
--- NOTE | 2020-01-08 12:43 | PRG ---
DATE OF SERVICE: 01/08/2020 SUBJECTIVE: Mr. Ennis appears more lucid today, although, still confused. Heart rate is stable and in sinus rhythm. He was placed on IV amiodarone therapy yesterday. OBJECTIVE: VITAL SIGNS: Blood pressure 156/65, pulse 99, temperature afebrile. LUNGS: Clear to auscultation. HEART: Regular rate and rhythm. ABDOMEN: Soft, nontender, nondistended. EXTREMITIES: No edema. PERTINENT LABORATORY DATA: Hemoglobin 11.7. Creatinine 0.68, potassium 3.7. IMPRESSION: 1. Coronary artery disease. 2. Status post bypass surgery. 3. Postop atrial fibrillation. RECOMMENDATIONS: Mr. Ennis is more stable today than he was yesterday. He is no longer 4-point restraints. Continue beta-albert therapy and amiodarone therapy over the next 24 hours. Incentive spirometry if he participates in addition to statin therapy and beta-albert therapy. The patient will likely need inpatient rehab. Job ID: [id number]
--- NOTE | 2020-01-08 12:57 | PDOC.HOSPP ---
- Subjective Encounter Date: 01/08/20 Encounter Time: 12:50 Subjective: f/u s/p CABG x 4v POD# 3. Remains on Precedex with persistent agitation and confusion. - Objective Vital Signs & Weight: Vital Signs (12 hours) Temp Pulse Ox 01/08/20 11:00 99.0 F 01/08/20 08:00 100 01/08/20 07:51 98.3 F 01/08/20 04:00 100 01/08/20 03:50 97.0 F L Weight Weight 145 lb 12.8 oz Most Recent Monitor Data Heart Rate from ECG 74 NIBP 156/65 NIBP BP-Mean 95 Respiration from ECG 18 SpO2 100 I&O: 01/07/20 01/08/20 01/09/20 06:59 06:59 06:59 Intake Total 1837.5 1828.5 Output Total 320 Balance 1517.5 1828.5 Result Diagrams: 01/08/20 04:45 01/08/20 04:45 Additional Labs: Accuchecks 01/05/20 01/05/20 01/05/20 16:02 15:47 15:28 POC Glucose 94 89 67 L 01/05/20 01/05/20 15:02 14:07 POC Glucose 88 100 Radiology Reviewed by me: Yes (PCXR - no significant interval change in 24h) EKG Reviewed by me: Yes (Tele - SR) Hospitalist ROS - Medication Medications: Active Medications Generic Name Dose Route Start Last Admin Trade Name Freq PRN Reason Stop Dose Admin Aspirin 325 mg 01/06/20 09:00 01/08/20 09:57 Aspirin 325 Mg Tab PO 325 mg DAILY ISH Administration Atorvastatin Calcium 10 mg 01/05/20 21:00 01/07/20 21:12 Atorvastatin Calcium 10 Mg Tab PO Not Given QPM ISH Enoxaparin Sodium 30 mg 01/07/20 21:00 01/07/20 21:10 Enoxaparin Sodium 30 Mg/0.3 Ml Syringe SC 30 mg 2100 ISH Administration Famotidine 20 mg 01/05/20 21:00 01/08/20 09:57 Famotidine/Pf 20 Mg/2ml Vial SLOW IVP 20 mg Q12HR ISH Administration Lactated Ringer's 1,000 mls @ 50 mls/hr 01/06/20 10:29 01/08/20 05:07 Lactated Ringer's IV 1,000 mls .Q20H ISH Administration Diltiazem HCl 125 mg/ 125 mls @ 0 mls/hr 01/07/20 03:45 01/07/20 03:42 Miscellaneous Medication 1 IVPB 125 mls each/ Sodium Chloride INF ISH Administration Protocol Per Protocol Dexmedetomidine HCl 400 mcg/ 100 mls @ 0 mls/hr 01/07/20 11:00 01/08/20 01:57 Sodium Chloride IVPB 100 mls INF ISH Administration Protocol Per Protocol Amiodarone HCl 450 mg/ 259 mls @ 0 mls/hr 01/07/20 11:00 01/08/20 10:50 Dextrose/Water IVPB 259 mls INF ISH Administration Protocol Per Protocol Lorazepam 1 mg 01/06/20 16:03 01/07/20 08:21 Lorazepam 2 Mg/Ml Vial SLOW IVP 1 mg Q6H PRN Administration Agitation Metoprolol Tartrate 12.5 mg 01/07/20 21:00 01/08/20 09:57 Metoprolol Tartrate 25 Mg Tab PO 12.5 mg BID ISH Administration Polyethylene Glycol 17 gm 01/08/20 09:00 01/08/20 10:32 Polyethylene Glycol 3350 17 Gm Packet PO Not Given DAILY ISH Sodium Chloride 10 ml 01/06/20 21:00 01/08/20 09:58 Flush - Normal Saline 10 Ml Syringe IVF 10 ml Q12HR ISH Administration Ziprasidone 10 mg 01/06/20 10:27 01/07/20 04:00 Ziprasidone 20 Mg Vial IM 10 mg Q4H PRN Administration Agitation - Exam General Appearance: NAD, awake alert Eye: PERRL, anicteric sclera ENT: normocephalic atraumatic, no oropharyngeal lesions Neck: supple, symmetric, no JVD, no thyromegaly Heart: RRR, no gallops, no rubs, normal peripheral pulses Heart - other findings: S1, S2 Respiratory: CTAB, no wheezes, no rales, no ronchi Gastrointestinal: soft, non-tender, non-distended, normal bowel sounds, no palpable masses Extremities: no cyanosis, no clubbing, no edema Skin: normal turgor Neurological: cranial nerve grossly intact, no new deficit Musculoskeletal: normal tone, generalized weakness Psychiatric: oriented to person, flat affect Hosp A/P (1) Acute metabolic encephalopathy Code(s): G93.41 - METABOLIC ENCEPHALOPATHY Status: Acute Plan: Likely multifactorial, continue re-orientation techniques (2) Acute delirium Code(s): R41.0 - DISORIENTATION, UNSPECIFIED Status: Acute Plan: Wean off Precedex, Geodon PRN (3) CAD (coronary artery disease) Code(s): I25.10 - ATHSCL HEART DISEASE OF [place] CORONARY ARTERY W/O ANG PCTRS Status: Chronic Plan: s/p CABG x 4v POD #3 (4) Dementia Code(s): F03.90 - UNSPECIFIED DEMENTIA WITHOUT BEHAVIORAL DISTURBANCE Status: Chronic (5) Paroxysmal atrial fibrillation with RVR Code(s): I48.0 - PAROXYSMAL ATRIAL FIBRILLATION Status: Acute Plan: Converted to SR, continue Amiodarone - Plan PT/OT, social media intern, incentive spirometry, out of bed/ambulate, DVT proph w/SCDs Continue routine post-CABG protocol Geodon for combativeness 4-point restraints for safety Continue med mgmt Continue ASA/Lipitor OOB to chair/PT for mobilization AM lab: BMP, CBC
[2020-01-08] MEDS: Atorvastatin Calcium 10 MG TAB PO SCH (21:05)
[2020-01-08] MEDS: Enoxaparin Sodium 30 MG/0.3 ML SYRINGE SC SCH (21:06)
[2020-01-09 05:10] LABS: #Eosinphils 0.1 thou/uL (0.0-0.7); #Lymphocytes 0.8 thou/uL (1.20-3.40); #Monocytes 0.4 thou/uL (0.11-0.59); #Neutrophils 6.3 thou/uL (1.40-6.50); %Basophils 0.5 % (0.0-1.0); %Eosinophils 0.9 % (0.0-10.0); %Lymphocytes 10.9 % (21.0-51.0); %Monocytes 5.4 % (0.0-10.0); %Neutrophils 82.3 % (42.0-75.0); Hemoglobin 10.8 g/dL (14.0-18.0); Mean Corpuscular HGB CONC 34.5 g/dL (32.0-36.0); Mean Corpuscular Hemoglobin 30.9 pg (27.0-31.0); Mean Corpuscular Volume 89.4 fL (78.0-98.0); Mean Platelet Volume 8.3 fL (7.4-10.4); Platelet Count 155 thou/uL (130-400); RBC Distribution Width 11.8 % (11.5-14.5); Red Blood Cell (RBC) Count 3.49 mill/uL (4.70-6.10); White Blood Cell (WBC) Count 7.6 thou/uL (4.8-10.8)
[2020-01-09 05:31] LABS: Anion Gap 11 mmol/L (10-20); BUN (Urea Nitrogen) 19 mg/dL (8.4-25.7); Calc. Creatinine Clearance 86 mL/min (70-130); Calcium 8.1 mg/dL (7.8-10.44); Carbon Dioxide 23 mmol/L (23-31); Chloride 104 mmol/L (98-107); Estimated GFR-MDRD Greater than 90; Glucose 100 mg/dL (83-110); Potassium 3.3 mmol/L (3.5-5.1); Sodium 135 mmol/L (136-145)
[2020-01-09] MEDS: Aspirin 325 MG TAB PO SCH (08:43)
[2020-01-09] MEDS: Amiodarone 200 MG TAB PO SCH (08:43)
[2020-01-09] MEDS: Lisinopril 5 MG TAB PO SCH (08:43)
[2020-01-09] MEDS: Metoprolol Tartrate 25 MG TAB PO SCH ×2 (08:44→20:48)
[2020-01-09] MEDS: Ziprasidone 20 MG CAP PO SCH (08:44)
[2020-01-09] MEDS: Famotidine/PF 20 mg/2ml Vial SLOW IVP SCH ×2 (08:44→20:47)
[2020-01-09] MEDS: Polyethylene Glycol 3350 17 GM Packet PO SCH (08:45)
[2020-01-09] MEDS ORDERED: Metoprolol Tartrate 25 MG TAB PO SCH ×2 (09:00→10:15)
--- NOTE | 2020-01-09 11:57 | PRG ---
DATE OF SERVICE: 01/09/2020 SUBJECTIVE: Mr. Ennis appears to be more stable. He is currently on Precedex. His heart rate is stable. He is on IV amiodarone. OBJECTIVE: VITAL SIGNS: Blood pressure 154/75, pulse 100, and respirations 20. LUNGS: Clear to auscultation. HEART: Regular rate and rhythm. ABDOMEN: Soft, nontender, and nondistended. EXTREMITIES: No edema. LABORATORY DATA: Hemoglobin 10.8. Creatinine 0.65. IMPRESSION: 1. Coronary artery disease. 2. Status post bypass surgery. 3. Confusion. 4. Postop atrial fibrillation. RECOMMENDATIONS: 1. Continue current course. 2. Continue IV amiodarone. 3. Can supplement with p.o. amiodarone for now given high risk of recurrence. 4. The patient has taken low-dose beta-albert therapy and we will continue. We will increase to 25 b.i.d. from 12.5 b.i.d. Job ID: [id number]
[2020-01-09] MEDS: Ziprasidone 20 MG VIAL IM PRN (13:36)
--- NOTE | 2020-01-09 14:22 | EKG ---
Test Reason : POST-CABG Blood Pressure : / mmHG Vent. Rate : 070 BPM Atrial Rate : 070 BPM P-R Int : 154 ms QRS Dur : 082 ms QT Int : 440 ms P-R-T Axes : 058 055 090 degrees QTc Int : 475 ms Normal sinus rhythm Nonspecific ST and T wave abnormality Prolonged QT Abnormal ECG No previous ECGs available Confirmed by MILENA SANTAMARIA ([id number]) on 01/09/2020 2:21:50 PM Referred By: DEJAN Confirmed By:MILENA SANTAMARIA
--- NOTE | 2020-01-09 14:24 | EKG ---
Test Reason : TACHY Blood Pressure : / mmHG Vent. Rate : 173 BPM Atrial Rate : 178 BPM P-R Int : 000 ms QRS Dur : 060 ms QT Int : 250 ms P-R-T Axes : 000 037 113 degrees QTc Int : 424 ms Atrial fibrillation with rapid ventricular response Abnormal ECG Confirmed by MILENA SANTAMARIA ([id number]) on 01/09/2020 2:24:37 PM Referred By: AFFRAM Confirmed By:MILENA SANTAMARIA
--- NOTE | 2020-01-09 18:50 | PDOC.HOSPP ---
- Subjective Encounter Date: 01/09/20 Encounter Time: 18:50 Subjective: f/u s/p CABG x 4v POD #4. Confusion remains but more calm on Precedex/Geodon. - Objective Vital Signs & Weight: Vital Signs (12 hours) Temp Pulse BP Pulse Ox 01/09/20 15:37 98.3 F 01/09/20 11:34 98.0 F 01/09/20 08:43 118 H 154/75 H 01/09/20 07:28 98.9 F 01/09/20 07:25 100 Weight Weight 148 lb 11.2 oz Most Recent Monitor Data Heart Rate from ECG 80 NIBP 161/80 NIBP BP-Mean 107 Respiration from ECG 22 SpO2 90 I&O: 01/08/20 01/09/20 01/10/20 06:59 06:59 06:59 Intake Total 1828.5 1859 910 Output Total 250 450 Balance 1828.5 1609 460 Result Diagrams: 01/09/20 05:00 01/09/20 05:00 Additional Labs: Laboratory Tests 01/03/20 01/08/20 20:45 04:45 Sodium 138 Potassium 3.7 Creatinine 0.68 L SARS-CoV-2 (PCR) Not Detected EKG Reviewed by me: Yes (Tele - SR) Hospitalist ROS - Medication Medications: Active Medications Generic Name Dose Route Start Last Admin Trade Name Freq PRN Reason Stop Dose Admin Acetaminophen 650 mg 01/05/20 17:42 01/08/20 15:38 Acetaminophen 325 Mg Tab PO 650 mg Q6H PRN Administration Headache/Fever Or Mild Pain Amiodarone HCl 400 mg 01/09/20 09:00 01/09/20 08:43 Amiodarone 200 Mg Tab PO 400 mg DAILY ISH Administration Aspirin 325 mg 01/06/20 09:00 01/09/20 08:43 Aspirin 325 Mg Tab PO 325 mg DAILY ISH Administration Atorvastatin Calcium 10 mg 01/05/20 21:00 01/08/20 21:05 Atorvastatin Calcium 10 Mg Tab PO 10 mg QPM ISH Administration Enoxaparin Sodium 30 mg 01/07/20 21:00 01/08/20 21:06 Enoxaparin Sodium 30 Mg/0.3 Ml Syringe SC 30 mg 2100 ISH Administration Famotidine 20 mg 01/05/20 21:00 01/09/20 08:44 Famotidine/Pf 20 Mg/2ml Vial SLOW IVP 20 mg Q12HR ISH Administration Diltiazem HCl 125 mg/ 125 mls @ 0 mls/hr 01/07/20 03:45 01/07/20 03:42 Miscellaneous Medication 1 IVPB 125 mls each/ Sodium Chloride INF ISH Administration Protocol Per Protocol Dexmedetomidine HCl 400 mcg/ 100 mls @ 0 mls/hr 01/07/20 11:00 01/09/20 17:38 Sodium Chloride IVPB 100 mls INF ISH Administration Protocol Per Protocol Lisinopril 5 mg 01/09/20 09:00 01/09/20 08:43 Lisinopril 5 Mg Tab PO 5 mg DAILY ISH Administration Polyethylene Glycol 17 gm 01/08/20 09:00 01/09/20 08:45 Polyethylene Glycol 3350 17 Gm Packet PO 17 gm DAILY ISH Administration Sodium Chloride 10 ml 01/06/20 21:00 01/09/20 08:45 Flush - Normal Saline 10 Ml Syringe IVF 10 ml Q12HR ISH Administration Ziprasidone 10 mg 01/06/20 10:27 01/09/20 13:36 Ziprasidone 20 Mg Vial IM 10 mg Q4H PRN Administration Agitation Ziprasidone 20 mg 01/09/20 08:00 01/09/20 08:44 Ziprasidone 20 Mg Cap PO 20 mg QAM-WM ISH Administration - Exam General Appearance: NAD, awake alert Eye: PERRL, anicteric sclera ENT: normocephalic atraumatic, no oropharyngeal lesions Neck: supple, symmetric, no JVD, no thyromegaly, no lymphadenopathy Heart: RRR, no gallops, no rubs, normal peripheral pulses Heart - other findings: S1, S2 Respiratory: CTAB, no wheezes, no rales, no ronchi, normal chest expansion Gastrointestinal: soft, non-tender, non-distended, normal bowel sounds, no palpable masses Extremities: no cyanosis, no clubbing, no edema Skin: normal turgor Neurological: cranial nerve grossly intact, no new deficit Musculoskeletal: normal tone, generalized weakness Psychiatric: oriented to person, somnolent Hosp A/P (1) Acute metabolic encephalopathy Code(s): G93.41 - METABOLIC ENCEPHALOPATHY Status: Acute Plan: Multifactorial, likely delirium exacerbating underlying dementia (2) Acute delirium Code(s): R41.0 - DISORIENTATION, UNSPECIFIED Status: Acute (3) CAD (coronary artery disease) Code(s): I25.10 - ATHSCL HEART DISEASE OF [place] CORONARY ARTERY W/O ANG PCTRS Status: Chronic (4) Dementia Code(s): F03.90 - UNSPECIFIED DEMENTIA WITHOUT BEHAVIORAL DISTURBANCE Status: Chronic (5) Paroxysmal atrial fibrillation with RVR Code(s): I48.0 - PAROXYSMAL ATRIAL FIBRILLATION Status: Acute Plan: Current SR, continue Amiodarone/Metoprolol - Plan PT/OT, social worker school, out of bed/ambulate, DVT proph w/SCDs Continue routine post-CABG protocol [place] for combativeness 4-point restraints for safety Continue med mgmt Continue ASA/Lipitor OOB to chair/PT for mobilization AM lab: BMP, CBC
[2020-01-09] MEDS: Enoxaparin Sodium 30 MG/0.3 ML SYRINGE SC SCH (20:48)
[2020-01-09] MEDS: Atorvastatin Calcium 10 MG TAB PO SCH (20:48)
[2020-01-10 03:23] LABS: #Eosinphils 0.1 thou/uL (0.0-0.7); #Lymphocytes 1.1 thou/uL (1.20-3.40); #Monocytes 0.6 thou/uL (0.11-0.59); #Neutrophils 4.3 thou/uL (1.40-6.50); %Basophils 0.5 % (0.0-1.0); %Lymphocytes 17.9 % (21.0-51.0); %Monocytes 9.1 % (0.0-10.0); %Neutrophils 70.6 % (42.0-75.0); Hemoglobin 10.9 g/dL (14.0-18.0); Mean Corpuscular HGB CONC 34.2 g/dL (32.0-36.0); Mean Corpuscular Hemoglobin 30.3 pg (27.0-31.0); Mean Corpuscular Volume 88.7 fL (78.0-98.0); Mean Platelet Volume 7.8 fL (7.4-10.4); Platelet Count 188 thou/uL (130-400); Red Blood Cell (RBC) Count 3.59 mill/uL (4.70-6.10)
[2020-01-10 03:42] LABS: Anion Gap 13 mmol/L (10-20); BUN (Urea Nitrogen) 18 mg/dL (8.4-25.7); Calc. Creatinine Clearance 87 mL/min (70-130); Calcium 8.1 mg/dL (7.8-10.44); Carbon Dioxide 24 mmol/L (23-31); Chloride 106 mmol/L (98-107); Estimated GFR-MDRD Greater than 90; Glucose 99 mg/dL (83-110); Potassium 3.3 mmol/L (3.5-5.1); Sodium 140 mmol/L (136-145)
--- NOTE | 2020-01-10 06:56 | PRG ---
DATE OF SERVICE: 01/10/2020 The patient's vital signs are stable. His heart rate is about 75. His blood pressure varies 130 to 160 and he is currently on metoprolol and lisinopril. He pulled out his central line for the trifecta of chest tubes, [place], and central line being removed by the patient. He is more alert and awake this morning and conversant. He is helping give himself a bed bath with the nurse. His chest incisions surprisingly looks good for all the physical activity that he has exerted over the early days after surgery. His lungs are clear and he has no peripheral edema. At this time, the patient is only receiving p.o. Geodon in the morning and hopefully we can make some advancements with physical therapy and diet. Case Management is assisting with family decisions in regard to placement. Job ID: [id number]
[2020-01-10] MEDS: Amiodarone 200 MG TAB PO SCH (07:38)
[2020-01-10] MEDS: Ziprasidone 20 MG CAP PO SCH (07:38)
[2020-01-10] MEDS: Metoprolol Tartrate 25 MG TAB PO SCH ×2 (07:38→20:46)
[2020-01-10] MEDS: Aspirin 325 MG TAB PO SCH (07:38)
[2020-01-10] MEDS: Polyethylene Glycol 3350 17 GM Packet PO SCH (07:40)
[2020-01-10] MEDS: Lisinopril 5 MG TAB PO SCH ×2 (07:40→20:46)
--- NOTE | 2020-01-10 09:18 | PRG ---
DATE OF SERVICE: 01/10/2020 SUBJECTIVE: Mr. Ennis is doing well. He is more lucid today. He is seen sitting up and eating. He did pull his central line yesterday. He is currently not taking Precedex. OBJECTIVE: VITAL SIGNS: Blood pressure 96/55, pulse 98.2. LUNGS: Clear to auscultation. HEART: Regular rate and rhythm. ABDOMEN: Soft, nontender, and nondistended. EXTREMITIES: No edema. IMPRESSION: 1. Coronary artery disease. 2. Status post bypass surgery. 3. Postop confusion. RECOMMENDATIONS: Mr. Ennis appears to be improving. Continue current medical therapy including amiodarone 400 q.a.m. in addition to atorvastatin. We recommend amiodarone for 1 month only. Continue metoprolol at 25 b.i.d. Job ID: [id number]
--- NOTE | 2020-01-10 17:55 | PDOC.HOSPP ---
- Subjective Encounter Date: 01/10/20 Encounter Time: 17:45 Subjective: f/u s/p CABG x 4v POD #5 with delirium/dementia on prior Precedex and current Geodon. Pulled out central line per nursing. - Objective Vital Signs & Weight: Vital Signs (12 hours) Temp Pulse Pulse Pulse BP BP BP 01/10/20 15:18 99.4 F 01/10/20 14:42 86 83 162/78 H 152/73 H 01/10/20 14:11 82 86 157/82 H 162/78 H 01/10/20 12:00 99.5 F 01/10/20 08:00 01/10/20 07:40 80 96/55 L 01/10/20 07:25 98.2 F Pulse Ox Pulse Ox Pulse Ox 01/10/20 15:18 01/10/20 14:42 100 100 01/10/20 14:11 100 100 01/10/20 12:00 01/10/20 08:00 100 01/10/20 07:40 01/10/20 07:25 Weight Weight 142 lb 9.6 oz Most Recent Monitor Data Heart Rate from ECG 88 NIBP 189/85 NIBP BP-Mean 119 Respiration from ECG 23 SpO2 99 I&O: 01/09/20 01/10/20 01/11/20 06:59 06:59 06:59 Intake Total 1859 1084 Output Total 250 600 Balance 1609 484 Result Diagrams: 01/10/20 03:10 01/10/20 03:10 Additional Labs: Laboratory Tests 01/03/20 01/08/20 20:45 04:45 Sodium 138 Potassium 3.7 Creatinine 0.68 L SARS-CoV-2 (PCR) Not Detected EKG Reviewed by me: Yes (Tele - SR) Hospitalist ROS - Medication Medications: Active Medications Generic Name Dose Route Start Last Admin Trade Name Freq PRN Reason Stop Dose Admin Acetaminophen 650 mg 01/05/20 17:42 01/08/20 15:38 Acetaminophen 325 Mg Tab PO 650 mg Q6H PRN Administration Headache/Fever Or Mild Pain Amiodarone HCl 400 mg 01/09/20 09:00 01/10/20 07:38 Amiodarone 200 Mg Tab PO 400 mg DAILY ISH Administration Aspirin 325 mg 01/06/20 09:00 01/10/20 07:38 Aspirin 325 Mg Tab PO 325 mg DAILY ISH Administration Atorvastatin Calcium 10 mg 01/05/20 21:00 01/09/20 20:48 Atorvastatin Calcium 10 Mg Tab PO 10 mg QPM ISH Administration Enoxaparin Sodium 30 mg 01/07/20 21:00 01/09/20 20:48 Enoxaparin Sodium 30 Mg/0.3 Ml Syringe SC 30 mg 2100 ISH Administration Metoprolol Tartrate 25 mg 01/09/20 21:00 01/10/20 07:38 Metoprolol Tartrate 25 Mg Tab PO 25 mg BID ISH Administration Polyethylene Glycol 17 gm 01/08/20 09:00 01/10/20 07:40 Polyethylene Glycol 3350 17 Gm Packet PO 17 gm DAILY ISH Administration Ziprasidone 10 mg 01/06/20 10:27 01/09/20 13:36 Ziprasidone 20 Mg Vial IM 10 mg Q4H PRN Administration Agitation Ziprasidone 20 mg 01/09/20 08:00 01/10/20 07:38 Ziprasidone 20 Mg Cap PO 20 mg QAM-WM ISH Administration - Exam General Appearance: NAD, awake alert Eye: PERRL, anicteric sclera ENT: normocephalic atraumatic, no oropharyngeal lesions Neck: supple, symmetric, no JVD, no thyromegaly, no lymphadenopathy Heart: RRR, no murmur, no gallops, no rubs, normal peripheral pulses Heart - other findings: S1, S2 Respiratory: CTAB, no wheezes, no rales, no ronchi, normal chest expansion Gastrointestinal: soft, non-tender, non-distended, normal bowel sounds, no palpable masses Extremities: no cyanosis, no clubbing, no edema Skin: normal turgor Skin - other findings: chest incision CDI Neurological: cranial nerve grossly intact, no new deficit Musculoskeletal: normal tone, generalized weakness Psychiatric: oriented to person Hosp A/P (1) Acute metabolic encephalopathy Code(s): G93.41 - METABOLIC ENCEPHALOPATHY Status: Acute Plan: Waxing and waning, continue supportive techniques (2) Acute delirium Code(s): R41.0 - DISORIENTATION, UNSPECIFIED Status: Acute Plan: Geodon po PRN, re-orientation techniques (3) CAD (coronary artery disease) Code(s): I25.10 - ATHSCL HEART DISEASE OF [place] CORONARY ARTERY W/O ANG PCTRS Status: Chronic (4) Dementia Code(s): F03.90 - UNSPECIFIED DEMENTIA WITHOUT BEHAVIORAL DISTURBANCE Status: Chronic (5) Paroxysmal atrial fibrillation with RVR Code(s): I48.0 - PAROXYSMAL ATRIAL FIBRILLATION Status: Acute - Plan PT/OT, social secretary, out of bed/ambulate, DVT proph w/SCDs Continue routine post-CABG protocol Roe for combativeness 4-point restraints for safety/PRN Continue med mgmt Continue ASA/Lipitor OOB to chair/PT for mobilization Likely transition to [facility] 01/11/20
[2020-01-10] MEDS: Atorvastatin Calcium 10 MG TAB PO SCH (20:46)
[2020-01-10] MEDS: Enoxaparin Sodium 30 MG/0.3 ML SYRINGE SC SCH (20:46)
[2020-01-10] MEDS ORDERED: Electrolyte Replacement Protoc 1 EACH EACH FS SCH (23:45)
[2020-01-11] MEDS ORDERED: hydrALAZINE 25 MG TAB PO SCH (00:15)
[2020-01-11] MEDS ORDERED: Diltiazem HCl 125 MG, Admixture Fee 1 EACH in Sodium Chloride 0.9% 100 ML IVPB SCH (06:15)
--- NOTE | 2020-01-11 08:42 | PRG ---
DATE OF SERVICE: 01/11/2020 SUBJECTIVE: Mr. Ennis is currently stable. He did develop atrial fibrillation overnight. He was placed on IV Cardizem. He is now in sinus rhythm. OBJECTIVE: VITAL SIGNS: 170/79, pulse 88, temperature afebrile. LUNGS: Clear to auscultation. HEART: Regular rate and rhythm. ABDOMEN: Soft, nontender, nondistended. EXTREMITIES: No edema. PERTINENT LABORATORY DATA: Hemoglobin 10.9, creatinine 0.66. IMPRESSION: 1. Coronary artery disease. 2. Status post bypass surgery. 3. Postop atrial fibrillation. RECOMMENDATIONS: 1. Increase amiodarone to 400 mg p.o. b.i.d. 2. Discontinue IV Cardizem. 3. Incentive spirometry and physical therapy. 4. Consider anticoagulation therapy if atrial fibrillation continues. Job ID: [id number]
--- NOTE | 2020-01-11 09:00 | PDOC.HOSPP ---
- Subjective Encounter Date: 01/11/20 Encounter Time: 08:35 Subjective: f/u s/p CABG x 4v POD #6 with PAF on current Amiodarone/Metoprolol. Ambulating with PT this am. - Objective Vital Signs & Weight: Vital Signs (12 hours) Temp 01/11/20 07:11 99.4 F 01/11/20 04:00 97.9 F 01/10/20 23:00 98.8 F Weight Weight 141 lb 11.2 oz Most Recent Monitor Data Heart Rate from ECG 88 NIBP 170/79 NIBP BP-Mean 109 Respiration from ECG 24 SpO2 100 I&O: 01/10/20 01/11/20 01/12/20 06:59 06:59 06:59 Intake Total 1084 252 Output Total 600 275 50 Balance 484 -23 -50 Result Diagrams: 01/10/20 03:10 01/10/20 03:10 Additional Labs: Laboratory Tests 01/03/20 01/08/20 20:45 04:45 Sodium 138 Potassium 3.7 Creatinine 0.68 L SARS-CoV-2 (PCR) Not Detected EKG Reviewed by me: Yes (Tele - SR in 's) Hospitalist ROS - Medication Medications: Active Medications Generic Name Dose Route Start Last Admin Trade Name Freq PRN Reason Stop Dose Admin Acetaminophen 650 mg 01/05/20 17:42 01/08/20 15:38 Acetaminophen 325 Mg Tab PO 650 mg Q6H PRN Administration Headache/Fever Or Mild Pain Aspirin 325 mg 01/06/20 09:00 01/10/20 07:38 Aspirin 325 Mg Tab PO 325 mg DAILY ISH Administration Atorvastatin Calcium 10 mg 01/05/20 21:00 01/10/20 20:46 Atorvastatin Calcium 10 Mg Tab PO 10 mg QPM ISH Administration Enoxaparin Sodium 30 mg 01/07/20 21:00 01/10/20 20:46 Enoxaparin Sodium 30 Mg/0.3 Ml Syringe SC 30 mg 2100 ISH Administration Hydralazine HCl 25 mg 01/11/20 00:15 01/11/20 00:39 Hydralazine 25 Mg Tab PO 01/11/20 02:15 Not Given NOW ISH Lisinopril 5 mg 01/10/20 21:00 01/10/20 20:46 Lisinopril 5 Mg Tab PO 5 mg BID ISH Administration Metoprolol Tartrate 25 mg 01/09/20 21:00 01/10/20 20:46 Metoprolol Tartrate 25 Mg Tab PO 25 mg BID ISH Administration Polyethylene Glycol 17 gm 01/08/20 09:00 01/10/20 07:40 Polyethylene Glycol 3350 17 Gm Packet PO 17 gm DAILY ISH Administration Ziprasidone 10 mg 01/06/20 10:27 01/09/20 13:36 Ziprasidone 20 Mg Vial IM 10 mg Q4H PRN Administration Agitation Ziprasidone 20 mg 01/09/20 08:00 01/10/20 07:38 Ziprasidone 20 Mg Cap PO 20 mg QAM-WM ISH Administration - Exam General Appearance: NAD, awake alert Eye: PERRL, anicteric sclera ENT: normocephalic atraumatic, no oropharyngeal lesions Neck: supple, symmetric, no JVD, no thyromegaly, no lymphadenopathy Heart: RRR, no gallops, no rubs, normal peripheral pulses Heart - other findings: S1, S2 Respiratory: CTAB, no wheezes, no rales, no ronchi, normal chest expansion Gastrointestinal: soft, non-tender, non-distended, normal bowel sounds, no palpable masses Extremities: no cyanosis, no clubbing, no edema Skin: normal turgor Neurological: cranial nerve grossly intact, no new deficit Musculoskeletal: normal tone, generalized weakness Psychiatric: oriented to person, flat affect Hosp A/P (1) Acute metabolic encephalopathy Code(s): G93.41 - METABOLIC ENCEPHALOPATHY Status: Acute Plan: Improved, continue supportive mgmt, baseline dementia (2) Acute delirium Code(s): R41.0 - DISORIENTATION, UNSPECIFIED Status: Acute Plan: Improved, continue Geodon (3) CAD (coronary artery disease) Code(s): I25.10 - ATHSCL HEART DISEASE OF [place] CORONARY ARTERY W/O ANG PCTRS Status: Chronic Plan: s/p CABG POD #6, continue ASA/Lipitor/Metoprolol (4) Dementia Code(s): F03.90 - UNSPECIFIED DEMENTIA WITHOUT BEHAVIORAL DISTURBANCE Status: Chronic (5) Paroxysmal atrial fibrillation with RVR Code(s): I48.0 - PAROXYSMAL ATRIAL FIBRILLATION Status: Acute Plan: Continue Amiordarone/Metoprolol, ? anticoagulation - Plan PT/OT, administrator social welfare, out of bed/ambulate, DVT proph w/SCDs Continue routine post-CABG protocol Roe for combativeness Continue Amiodarone/Metoprolol Continue med mgmt Continue ASA/Lipitor OOB to chair/PT for mobilization Likely transition to [facility] in 24h
[2020-01-11] MEDS: Ziprasidone 20 MG CAP PO SCH (09:27)
[2020-01-11] MEDS: Aspirin 325 MG TAB PO SCH (09:27)
[2020-01-11] MEDS: Lisinopril 5 MG TAB PO SCH ×2 (09:27→20:46)
[2020-01-11] MEDS: Metoprolol Tartrate 25 MG TAB PO SCH ×2 (09:28→20:46)
[2020-01-11] MEDS: Amiodarone 200 MG TAB PO SCH ×2 (09:28→20:46)
[2020-01-11] MEDS: Polyethylene Glycol 3350 17 GM Packet PO SCH (09:31)
--- NOTE | 2020-01-11 11:06 | PRG ---
DATE OF SERVICE: 01/11/2020 The patient remains afebrile with stable vital signs. He is still significantly confused, but noncombative and non-restrained today. Chest incision is healing nicely. At this time, the patient is ready for transfer to assisted care facility in [place] and we will plan on this today or tomorrow. Job ID: [id number]
[2020-01-11] MEDS: Ziprasidone 20 MG VIAL IM PRN (17:10)
[2020-01-11] MEDS: Donepezil HCl 10 MG TAB PO SCH (20:45)
[2020-01-11] MEDS: Enoxaparin Sodium 30 MG/0.3 ML SYRINGE SC SCH (20:45)
[2020-01-11] MEDS: Atorvastatin Calcium 10 MG TAB PO SCH (20:46)
--- NOTE | 2020-01-12 07:03 | PRG ---
DATE OF SERVICE: 01/12/2020 The patient with stable vital signs overnight. Blood pressure was somewhat elevated earlier in the evening but is satisfactory now. He remains in sinus rhythm. He spent the night in the nurses' station visiting with the nurses all night. He was up and actually did a small dance for them while listening to music. He is ready for transfer to the nursing facility in [place] today. I expect his amiodarone will be continued only for about 1 month and then discontinued, and otherwise, his medications are as noted. Discharge and followup instructions have been given. Job ID: [id number]
--- NOTE | 2020-01-12 09:10 | PRG ---
DATE OF SERVICE: 01/12/2020 SUBJECTIVE: Mr. Ennis is currently stable. He continues to be confused. Blood pressure yesterday at one point was significantly hypotensive, but resolved. He remains in sinus rhythm. OBJECTIVE: VITAL SIGNS: Blood pressure 178/73, pulse 74, temperature afebrile. LUNGS: Clear to auscultation. HEART: Regular rate and rhythm. ABDOMEN: Soft, nontender, and nondistended. EXTREMITIES: No edema. PERTINENT LABORATORY DATA: Hemoglobin 10.9, hematocrit 31.9, and platelet count 188. IMPRESSION: 1. Coronary artery disease. 2. Status post bypass surgery. 3. Postoperative atrial fibrillation. 4. Confusion. RECOMMENDATIONS: 1. We will decrease amiodarone to 400 mg one p.o. q.a.m. 2. I do not feel comfortable adding anticoagulation therapy given intermittent episodes and concern for falls and history of confusion. 3. The patient will be transferred to [facility] in the next day or 2. Job ID: [id number]
[2020-01-12] MEDS: Ziprasidone 20 MG CAP PO SCH (09:17)
[2020-01-12] MEDS: Lisinopril 5 MG TAB PO SCH ×2 (09:17→20:37)
[2020-01-12] MEDS: Amiodarone 200 MG TAB PO SCH ×2 (09:17→20:37)
[2020-01-12] MEDS: Aspirin 325 MG TAB PO SCH (09:17)
[2020-01-12] MEDS: Polyethylene Glycol 3350 17 GM Packet PO SCH (09:18)
[2020-01-12] MEDS: Metoprolol Tartrate 25 MG TAB PO SCH ×2 (09:18→20:37)
--- NOTE | 2020-01-12 17:52 | PDOC.HOSPP ---
- Subjective Encounter Date: 01/12/20 Encounter Time: 12:00 Subjective: f/u for CAD, s/p CABG x 4v POD #7. Awaiting transition to swing bed. Remains confused per nursing but overall stable. - Objective Vital Signs & Weight: Vital Signs (12 hours) Temp Pulse Pulse Pulse Pulse Resp BP 01/12/20 17:17 97.1 F L 82 16 01/12/20 15:36 97.6 F 01/12/20 14:32 78 78 78 92/61 01/12/20 12:15 98.1 F 01/12/20 08:15 86 19 01/12/20 07:29 97.3 F L BP BP BP BP Pulse Ox Pulse Ox Pulse Ox 01/12/20 17:17 118/59 L 100 01/12/20 15:36 01/12/20 14:32 101/48 L 148/75 H 100 100 01/12/20 12:15 01/12/20 08:15 101/65 98 01/12/20 07:29 Pulse Ox 01/12/20 17:17 01/12/20 15:36 01/12/20 14:32 100 01/12/20 12:15 01/12/20 08:15 01/12/20 07:29 Weight Weight 141 lb 11.2 oz Most Recent Monitor Data Heart Rate from ECG 84 NIBP 148/75 NIBP BP-Mean 99 Respiration from ECG 20 SpO2 100 I&O: 01/11/20 01/12/20 01/13/20 06:59 06:59 06:59 Intake Total 252 2085 Output Total 275 250 Balance -23 1835 Result Diagrams: 01/10/20 03:10 01/10/20 03:10 Additional Labs: Laboratory Tests 01/03/20 01/08/20 20:45 04:45 Sodium 138 Potassium 3.7 Creatinine 0.68 L SARS-CoV-2 (PCR) Not Detected EKG Reviewed by me: Yes (Tele - SR) Hospitalist ROS - Medication Medications: Active Medications Generic Name Dose Route Start Last Admin Trade Name Freq PRN Reason Stop Dose Admin Acetaminophen 650 mg 01/05/20 17:42 01/08/20 15:38 Acetaminophen 325 Mg Tab PO 650 mg Q6H PRN Administration Headache/Fever Or Mild Pain Amiodarone HCl 400 mg 01/11/20 09:00 01/12/20 09:17 Amiodarone 200 Mg Tab PO 400 mg BID ISH Administration Aspirin 325 mg 01/06/20 09:00 01/12/20 09:17 Aspirin 325 Mg Tab PO 325 mg DAILY ISH Administration Atorvastatin Calcium 10 mg 01/05/20 21:00 01/11/20 20:46 Atorvastatin Calcium 10 Mg Tab PO 10 mg QPM ISH Administration Donepezil HCl 10 mg 01/11/20 21:00 01/11/20 20:45 Donepezil Hcl 10 Mg Tab PO 10 mg HS ISH Administration Enoxaparin Sodium 30 mg 01/07/20 21:00 01/11/20 20:45 Enoxaparin Sodium 30 Mg/0.3 Ml Syringe SC 30 mg 2100 ISH Administration Hydralazine HCl 25 mg 01/11/20 00:15 01/11/20 00:39 Hydralazine 25 Mg Tab PO 01/11/20 02:15 Not Given NOW ISH Lisinopril 5 mg 01/10/20 21:00 01/12/20 09:17 Lisinopril 5 Mg Tab PO Not Given BID ISH Metoprolol Tartrate 25 mg 01/09/20 21:00 01/12/20 09:18 Metoprolol Tartrate 25 Mg Tab PO Not Given BID ISH Polyethylene Glycol 17 gm 01/08/20 09:00 01/12/20 09:18 Polyethylene Glycol 3350 17 Gm Packet PO 17 gm DAILY ISH Administration Ziprasidone 10 mg 01/06/20 10:27 01/11/20 17:10 Ziprasidone 20 Mg Vial IM 10 mg Q4H PRN Administration Agitation Ziprasidone 20 mg 01/09/20 08:00 01/12/20 09:17 Ziprasidone 20 Mg Cap PO 20 mg QAM-WM ISH Administration - Exam General Appearance: NAD, awake alert Eye: PERRL, anicteric sclera ENT: normocephalic atraumatic, no oropharyngeal lesions Neck: supple, symmetric, no JVD, no thyromegaly, no lymphadenopathy Heart: RRR, no gallops, no rubs, normal peripheral pulses Heart - other findings: S1, S2 Respiratory: CTAB, no wheezes, no rales, no ronchi, normal chest expansion Respiratory - other findings: sternal incision CDI Gastrointestinal: soft, non-tender, non-distended, normal bowel sounds, no palpable masses Extremities: no cyanosis, no clubbing, no edema Skin: normal turgor Neurological: cranial nerve grossly intact, no new deficit Musculoskeletal: normal tone, generalized weakness Psychiatric: oriented to person Hosp A/P (1) Acute metabolic encephalopathy Code(s): G93.41 - METABOLIC ENCEPHALOPATHY Status: Acute Plan: Multifactorial, continue Geodon, re-orientation techniques (2) Acute delirium Code(s): R41.0 - DISORIENTATION, UNSPECIFIED Status: Acute Plan: Improved, supportive mgmt (3) CAD (coronary artery disease) Code(s): I25.10 - ATHSCL HEART DISEASE OF [place] CORONARY ARTERY W/O ANG PCTRS Status: Chronic Plan: s/p CABG x 4v POD #7, med mgmt (4) Dementia Code(s): F03.90 - UNSPECIFIED DEMENTIA WITHOUT BEHAVIORAL DISTURBANCE Status: Chronic (5) Paroxysmal atrial fibrillation with RVR Code(s): I48.0 - PAROXYSMAL ATRIAL FIBRILLATION Status: Acute Plan: Rate controlled, continue Amiodarone 400mg po daily, Metoprolol, no anticoagulation due to falls - Plan PT/OT, social services director, out of bed/ambulate, DVT proph w/SCDs Continue routine post-CABG protocol Geodon for combativeness Continue Amiodarone/Metoprolol Continue med mgmt Continue ASA/Lipitor OOB to chair/PT for mobilization Plan for transfer to [facility], no availability until 01/15/20
[2020-01-12] MEDS: Sterile Water 10 ML VIAL FS PRN (20:36)
[2020-01-12] MEDS: Ziprasidone 20 MG VIAL IM PRN (20:37)
[2020-01-12] MEDS: Atorvastatin Calcium 10 MG TAB PO SCH (20:37)
[2020-01-12] MEDS: Enoxaparin Sodium 30 MG/0.3 ML SYRINGE SC SCH (20:38)
[2020-01-12] MEDS: Donepezil HCl 10 MG TAB PO SCH (20:38)
--- NOTE | 2020-01-13 01:50 | DIS ---
DATE OF ADMISSION: 01/04/2020 DATE OF DISCHARGE: 01/12/2020 DISCHARGE DIAGNOSES: 1. Acute metabolic encephalopathy, multifactorial including baseline dementia. 2. Acute delirium, labile. 3. Coronary artery disease, status post coronary artery bypass grafting x4 vessels, 01/05/2020. 4. Alzheimer's dementia, advanced. 5. Paroxysmal atrial fibrillation with rapid ventricular response, current sinus mechanism. CONSULTATIONS: 1. Dr. Soriano with Cardiothoracic Surgery Service. 2. Dr. Hollis with Cardiology Service. PERTINENT LABORATORY AND X-RAY FINDINGS: Potassium ranged between 3.3 to 4.3. Troponin I negative x2. Total cholesterol 168, triglycerides 99, HDL 30, LDL 118. TSH 2.28, magnesium 2.3, phosphorus 2.9. CBC showed a white blood cell count ranging between 6.0 to 14.3. Hemoglobin ranged between 10.8 to 11.6. COVID-19 PCR not detected on 01/03/2020. Cardiolite stress test dated 01/04/2020, showed moderate region of the apical anterior septal and septal wall suspicious for reversible myocardial ischemia. Dyskinesia involving the anterior septal and superior septal wall. Estimated ejection fraction of 63%. Cardiac catheterization dated 01/05/2020 showed severe left main disease with occluded left anterior descending, severe OM1, OM2 and OM3 disease. Severe ostial disease of the right coronary artery in mid section of the right coronary artery. HOSPITAL COURSE: The patient was initially admitted after presenting with chest pain. The patient was initially admitted after presenting with chest pain while exercising. The patient underwent serial cardiac biomarkers which were negative as stated previously. Due to patient's presentation, the patient underwent cardiac stress testing showing evidence of reversible ischemia in multiple regions. The patient was evaluated by the Cardiology Service, undergoing cardiac catheterization showing multivessel disease necessitating evaluation by the Cardiovascular surgery Service. Due to the findings of the heart catheterization, the patient was deemed an appropriate candidate and proceeded with coronary artery bypass grafting on 01/05/2020 undergoing a MOORE to LAD and saphenous vein graft to PDA, OM1 and OM2. Postoperatively, the patient was noted with acute delirium and altered mentation requiring Precedex and Geodon for control. The patient was slow to clinically improve, however, was stable after approximately 6 to 7 days postop, tolerating regular oral intake and ambulating with a rolling walker with physical therapy. Overall, the patient did clinically stabilize in regard to cardiac status. Due to patient's recent surgery, altered mentation, and need for ongoing supervised exercise, the patient was deemed an appropriate candidate to transfer to [facility]. I have examined the patient at the time of discharge and discussed followup instructions. The patient is ready for discharge on 01/12/2020. DISCHARGE MEDICATIONS: 1. Aricept 10 mg p.o. at bedtime. 2. Enteric-coated aspirin 325 mg p.o. daily. 3. Amiodarone 400 mg p.o. daily. 4. Lipitor 10 mg p.o. at bedtime. 5. Lisinopril 5 mg p.o. b.i.d. 6. Metoprolol tartrate 25 mg p.o. b.i.d.. 7. Geodon 20 mg p.o. q.a.m. FOLLOWUP: The patient may follow up with Dr. Erica Villalba. The patient will follow up with Dr. Efren Soriano. The patient will follow up with Dr. White. CONDITION ON DISCHARGE: Fair. ACTIVITY: Ad-melissa, rolling walker with standby assistance. DIET: Heart healthy. CODE STATUS: Full. DISPOSITION: Discharged to [facility], 01/12/2020. TIME SPENT: Total time preparing and coordinating discharge is 36 minutes. Job ID: [id number]
[2020-01-13] MEDS: Amiodarone 200 MG TAB PO SCH ×2 (08:20→20:42)
[2020-01-13] MEDS: Metoprolol Tartrate 25 MG TAB PO SCH ×2 (08:21→20:42)
[2020-01-13] MEDS: Lisinopril 5 MG TAB PO SCH ×2 (08:21→20:42)
[2020-01-13] MEDS: Polyethylene Glycol 3350 17 GM Packet PO SCH (08:21)
[2020-01-13] MEDS: Aspirin 325 MG TAB PO SCH (08:21)
[2020-01-13] MEDS: Ziprasidone 20 MG CAP PO SCH (08:26)
[2020-01-13] MEDS: Aspirin 81 mg Enteric Coated Tablet PO SCH (09:07)
[2020-01-13 09:25] LABS: Hemoglobin 10.9 g/dL (14.0-18.0)
[2020-01-13] MEDS ORDERED: Potassium Chloride 20 MEQ TAB PO SCH ×3 (10:45→15:30)
[2020-01-13 14:40] LABS: Potassium 3.1 mmol/L (3.5-5.1)
[2020-01-13] MEDS ORDERED: Magnesium Oxide 400 MG TAB PO SCH (16:30)
--- NOTE | 2020-01-13 20:40 | PDOC.HOSPP ---
- Subjective Encounter Date: 01/13/20 Encounter Time: 11:00 Subjective: Patient is doing well. He has no complaints of chest pain or shortness of breath. Per nursing staff the patient has been requiring a sitter because he frequently likes to wander around the hospital and wants to socialize Hypokalemiapatient states that he was not eating properly the past few days. He denies any nausea, vomiting or diarrhea.. Appetite is good today. - Objective Vital Signs & Weight: Vital Signs (12 hours) Temp Pulse Resp BP BP BP BP 01/13/20 19:29 98.1 F 65 20 155/67 H 01/13/20 15:20 97.7 F 60 16 104/49 L 01/13/20 14:56 104/49 L 119/59 L 01/13/20 11:19 97.3 F L 59 L 16 127/54 L 01/13/20 10:25 90/43 L 105/55 L Pulse Ox 01/13/20 19:29 97 01/13/20 15:20 98 01/13/20 14:56 01/13/20 11:19 94 L 01/13/20 10:25 Weight Weight 140 lb 1.6 oz Most Recent Monitor Data Heart Rate from ECG 84 NIBP 148/75 NIBP BP-Mean 99 Respiration from ECG 20 SpO2 100 I&O: 01/12/20 01/13/20 01/14/20 06:59 06:59 06:59 Intake Total 2085 500 1000 Output Total 250 Balance 5553 494 0762 Result Diagrams: 01/13/20 09:09 01/13/20 14:20 Hospitalist ROS - Review of Systems Constitutional: denies: fever, chills - Medication Medications: Active Medications Generic Name Dose Route Start Last Admin Trade Name Freq PRN Reason Stop Dose Admin Acetaminophen 650 mg 01/05/20 17:42 01/08/20 15:38 Acetaminophen 325 Mg Tab PO 650 mg Q6H PRN Administration Headache/Fever Or Mild Pain Amiodarone HCl 400 mg 01/11/20 09:00 01/13/20 08:20 Amiodarone 200 Mg Tab PO 400 mg BID ISH Administration Aspirin 81 mg 01/13/20 09:00 01/13/20 09:07 Aspirin 81 Mg Enteric Coated Tablet PO Not Given DAILY [facility] Atorvastatin Calcium 10 mg 01/05/20 21:00 01/12/20 20:37 Atorvastatin Calcium 10 Mg Tab PO 10 mg QPM ISH Administration Donepezil HCl 10 mg 01/11/20 21:00 01/12/20 20:38 Donepezil Hcl 10 Mg Tab PO 10 mg HS ISH Administration Enoxaparin Sodium 30 mg 01/07/20 21:00 01/12/20 20:38 Enoxaparin Sodium 30 Mg/0.3 Ml Syringe SC 30 mg 2100 ISH Administration Hydralazine HCl 25 mg 01/11/20 00:15 01/11/20 00:39 Hydralazine 25 Mg Tab PO 01/11/20 02:15 Not Given NOW ISH Lisinopril 5 mg 01/10/20 21:00 01/13/20 08:21 Lisinopril 5 Mg Tab PO 5 mg BID ISH Administration Metoprolol Tartrate 25 mg 01/09/20 21:00 01/13/20 08:21 Metoprolol Tartrate 25 Mg Tab PO 25 mg BID ISH Administration Polyethylene Glycol 17 gm 01/08/20 09:00 01/13/20 08:21 Polyethylene Glycol 3350 17 Gm Packet PO 17 gm DAILY ISH Administration Sterile Water 1.2 ml 01/12/20 20:15 01/12/20 20:36 Sterile Water 10 Ml Vial FS 1.2 ml PRN PRN Administration RECONSTITUTION Ziprasidone 10 mg 01/06/20 10:27 01/12/20 20:37 Ziprasidone 20 Mg Vial IM 10 mg Q4H PRN Administration Agitation Ziprasidone 20 mg 01/09/20 08:00 01/13/20 08:26 Ziprasidone 20 Mg Cap PO 20 mg QAM-WM ISH Administration - Exam General Appearance: NAD, awake alert Eye: PERRL, anicteric sclera ENT: normocephalic atraumatic, no oropharyngeal lesions Neck: no JVD Heart: RRR, no murmur, no gallops, no rubs Respiratory: CTAB, no wheezes, no rales, no ronchi Gastrointestinal: soft, non-tender, non-distended, normal bowel sounds Extremities: no cyanosis, no clubbing, no edema Skin: normal turgor, no lesions, no rashes Neurological: cranial nerve grossly intact, normal sensation to touch, no weakness Musculoskeletal: normal tone, normal strength, no muscle wasting Psychiatric: normal affect, normal behavior, A&O x 3 Hosp A/P - Plan Nuclear stress test : moderate size region of moderately reduced activity in mid to apical anterior septal and septal wall CTA chest: left lung nodule, 4 mm in the periphery of the left upper lobe. 5 mm peripheral nodule in left lower lobe Cardiac cath: severe OM1/OM2/OM3, severe ostial RCA and mid RCA, occluded LAD This is a 79 year old male who presented with chest pain Chest pain secondary to severe CAD s/p CABG - CTA negative for PE, troponins negative - stress test abnormal and shows reduced activity in apical anterior septal and septal wall. Cath showed severe 3 vessel disease. He is s/p CABG -Continue aspirin, statin, and lisinopril Hypokalemia -Potassium 3.0. Patient was given replacement and repeat potassium is up to 3.1. Ordered another 40 MEQ of potassium - mg 1.9, replaced Atrial fibrillation -Continue amiodarone 400 mg daily per cardiology. Not a candidate for anticoagulation at this time due to delirium Leukocytosis - WBC up to 11.7, chest X ray shows atelectasis. Continue IV cefazolin PUlmonary nodule left upper lobe and left lower lobe - needs outpatient f/u in 12 months. Noted on CTA chest 01/02 Anemia - Hb 10.2, will monitor Dementia -Currently requiring a sitter. Will speak to family about supervising the patient was at [facility]. Currently there is no sitter available at [facility]
[2020-01-13] MEDS: Donepezil HCl 10 MG TAB PO SCH (20:42)
[2020-01-13] MEDS: Sterile Water 10 ML VIAL FS PRN (20:42)
[2020-01-13] MEDS: Atorvastatin Calcium 10 MG TAB PO SCH (20:42)
[2020-01-13] MEDS: Ziprasidone 20 MG VIAL IM PRN (20:47)
[2020-01-13] MEDS: Enoxaparin Sodium 30 MG/0.3 ML SYRINGE SC SCH (20:48)
[2020-01-14 04:31] LABS: Hemoglobin 10.2 g/dL (14.0-18.0)
[2020-01-14 04:53] LABS: Anion Gap 11 mmol/L (10-20); BUN (Urea Nitrogen) 18 mg/dL (8.4-25.7); Calc. Creatinine Clearance 67 mL/min (70-130); Calcium 7.9 mg/dL (7.8-10.44); Carbon Dioxide 26 mmol/L (23-31); Chloride 106 mmol/L (98-107); Estimated GFR-MDRD Greater than 90; Glucose 103 mg/dL (83-110); Magnesium 1.8 mg/dL (1.6-2.6); Potassium 3.5 mmol/L (3.5-5.1); Sodium 139 mmol/L (136-145)
[2020-01-14] MEDS ORDERED: Potassium Chloride 20 MEQ TAB PO SCH (06:45)
[2020-01-14] MEDS ORDERED: Magnesium 2 GM/50 ML 2 GM in Premix Bag 1 BAG IVPB SCH (06:45)
[2020-01-14] MEDS: Ziprasidone 20 MG CAP PO SCH (09:20)
[2020-01-14] MEDS: Amiodarone 200 MG TAB PO SCH ×2 (09:20→21:08)
[2020-01-14] MEDS: Lisinopril 5 MG TAB PO SCH ×2 (09:20→21:09)
[2020-01-14] MEDS: Aspirin 81 mg Enteric Coated Tablet PO SCH (09:20)
[2020-01-14] MEDS: Polyethylene Glycol 3350 17 GM Packet PO SCH (09:21)
[2020-01-14] MEDS: Metoprolol Tartrate 25 MG TAB PO SCH ×2 (09:21→21:09)
--- NOTE | 2020-01-14 17:33 | PDOC.HOSPP ---
- Subjective Encounter Date: 01/14/20 Encounter Time: 09:00 Subjective: The patient is doing well. He denies chest pain or shortness of breath. He ambulated with therapy, is slightly SOB while walking. Spoke to the patient's friend Emelina after his gave the phone to her. Explained how the patient is requiring a sitter at the hospital and no nursing homes in the area provide for sitters. They stated they would be willing to pay out of pocket for a sitter but wanted to talk to case management about how to find one - Objective Vital Signs & Weight: Vital Signs (12 hours) Temp Pulse Resp BP BP BP Pulse Ox 01/14/20 15:38 99.0 F 62 18 154/69 H 98 01/14/20 14:08 104/49 L 125/58 L 01/14/20 11:52 98.9 F 79 18 133/73 95 01/14/20 11:29 98.2 F 69 15 116/56 L 98 01/14/20 10:28 118/57 L 112/53 L 01/14/20 09:20 60 01/14/20 07:52 96 01/14/20 07:38 96 01/14/20 07:29 98.8 F 60 18 154/68 H 93 L Weight Weight 138 lb 1.6 oz Most Recent Monitor Data Heart Rate from ECG 84 NIBP 148/75 NIBP BP-Mean 99 Respiration from ECG 20 SpO2 100 I&O: 01/13/20 01/14/20 01/15/20 06:59 06:59 06:59 Intake Total 500 1300 Balance 500 1300 Result Diagrams: 01/14/20 04:03 01/14/20 04:03 Hospitalist ROS - Review of Systems Constitutional: denies: fever, chills - Medication Medications: Active Medications Generic Name Dose Route Start Last Admin Trade Name Freq PRN Reason Stop Dose Admin Acetaminophen 650 mg 01/05/20 17:42 01/08/20 15:38 Acetaminophen 325 Mg Tab PO 650 mg Q6H PRN Administration Headache/Fever Or Mild Pain Amiodarone HCl 400 mg 01/11/20 09:00 01/14/20 09:20 Amiodarone 200 Mg Tab PO 400 mg BID ISH Administration Aspirin 81 mg 01/13/20 09:00 01/14/20 09:20 Aspirin 81 Mg Enteric Coated Tablet PO 81 mg DAILY ISH Administration Atorvastatin Calcium 10 mg 01/05/20 21:00 01/13/20 20:42 Atorvastatin Calcium 10 Mg Tab PO 10 mg QPM ISH Administration Donepezil HCl 10 mg 01/11/20 21:00 01/13/20 20:42 Donepezil Hcl 10 Mg Tab PO 10 mg HS ISH Administration Enoxaparin Sodium 30 mg 01/07/20 21:00 01/13/20 20:48 Enoxaparin Sodium 30 Mg/0.3 Ml Syringe SC 30 mg 2100 ISH Administration Hydralazine HCl 25 mg 01/11/20 00:15 01/11/20 00:39 Hydralazine 25 Mg Tab PO 01/11/20 02:15 Not Given NOW [facility] Lisinopril 5 mg 01/10/20 21:00 01/14/20 09:20 Lisinopril 5 Mg Tab PO 5 mg BID ISH Administration Metoprolol Tartrate 25 mg 01/09/20 21:00 01/14/20 09:21 Metoprolol Tartrate 25 Mg Tab PO 25 mg BID ISH Administration Polyethylene Glycol 17 gm 01/08/20 09:00 01/14/20 09:21 Polyethylene Glycol 3350 17 Gm Packet PO 17 gm DAILY ISH Administration Sterile Water 1.2 ml 01/12/20 20:15 01/13/20 20:42 Sterile Water 10 Ml Vial FS 1.2 ml PRN PRN Administration RECONSTITUTION Ziprasidone 10 mg 01/06/20 10:27 01/13/20 20:47 Ziprasidone 20 Mg Vial IM 10 mg Q4H PRN Administration Agitation Ziprasidone 20 mg 01/09/20 08:00 01/14/20 09:20 Ziprasidone 20 Mg Cap PO 20 mg QAM-WM ISH Administration - Exam General Appearance: NAD, awake alert Eye: PERRL, anicteric sclera ENT: normocephalic atraumatic, no oropharyngeal lesions Neck: no JVD Heart: RRR, no murmur, no gallops, no rubs Respiratory: CTAB, no wheezes, no rales, no ronchi Gastrointestinal: soft, non-tender, non-distended, normal bowel sounds Extremities: no cyanosis, no clubbing, no edema Skin: normal turgor, no lesions, no rashes Neurological: cranial nerve grossly intact, normal sensation to touch, no weakness Hosp A/P - Plan Nuclear stress test : moderate size region of moderately reduced activity in mid to apical anterior septal and septal wall CTA chest: left lung nodule, 4 mm in the periphery of the left upper lobe. 5 mm peripheral nodule in left lower lobe Cardiac cath: severe OM1/OM2/OM3, severe ostial RCA and mid RCA, occluded LAD This is a 79 year old male who presented with chest pain Chest pain secondary to severe CAD s/p CABG - CTA negative for PE, troponins negative - stress test abnormal and shows reduced activity in apical anterior septal and septal wall. Cath showed severe 3 vessel disease. He is s/p CABG -Continue aspirin, statin, and lisinopril Atrial fibrillation -Continue amiodarone 400 mg daily per cardiology. Not a candidate for anticoagulation at this time due to delirium PUlmonary nodule left upper lobe and left lower lobe - needs outpatient f/u in 12 months. Noted on CTA chest 01/02 Anemia - Hb 10.2. Stable, consider outpatient workup Dementia -Currently requiring a sitter since he is impulsive getting up. Family to look into paying for a private sitter Leukocytosis -resolved Hypokalemia -resolved
[2020-01-14] MEDS: Donepezil HCl 10 MG TAB PO SCH (21:08)
[2020-01-14] MEDS: Atorvastatin Calcium 10 MG TAB PO SCH (21:09)
[2020-01-14] MEDS: Enoxaparin Sodium 30 MG/0.3 ML SYRINGE SC SCH (21:09)
[2020-01-15] MEDS: Ziprasidone 20 MG VIAL IM PRN (03:44)
[2020-01-15 04:32] LABS: Hemoglobin 11.5 g/dL (14.0-18.0)
[2020-01-15] MEDS ORDERED: Amiodarone 200 MG TAB PO SCH (06:26)
[2020-01-15] MEDS: Metoprolol Tartrate 25 MG TAB PO SCH (09:46)
[2020-01-15] MEDS: Lisinopril 5 MG TAB PO SCH (09:46)
[2020-01-15] MEDS: Polyethylene Glycol 3350 17 GM Packet PO SCH (09:46)
[2020-01-15] MEDS: Ziprasidone 20 MG CAP PO SCH (09:46)
[2020-01-15] MEDS: Aspirin 81 mg Enteric Coated Tablet PO SCH (09:46)
[2020-01-15 11:15] VITALS: BP 109/53; TEMP 98.4
--- NOTE | 2020-01-15 12:02 | PDOC.CPN ---
- Subjective Date: 01/15/20 Time: 11:53 Interval history: No new issues. No chest pain, Working well with PT. Having BM's. He is pleasant on my evaluation. Friend/sitter at bedside. - Review of Systems General: denies: fever/chills, weight/appetite/sleep changes, night sweats, fatigue Respiratory: denies: cough, congestion, shortness of breath, exercise intolerance Cardiovascular: denies: chest pain, palpitation, edema, paroxysmal nocturnal dyspnea, orthopnea Gastrointestinal: denies: nausea, vomiting, diarrhea, constipation, abd pain, GI bleeding Musculoskeletal: denies: pain, tenderness, stiffness, swelling, arthritis/arthralgias Neurological: denies: numbness, syncope, seizure, weakness - Objective Allergies/Adverse Reactions: Allergies Allergy/AdvReac Type Severity Reaction Status Date / Time No Known Allergies Allergy Verified 01/03/20 22:44 Visit Medications: Current Medications Acetaminophen (Acetaminophen 325 Mg Tab) 650 mg PO Q6H PRN PRN Reason: Headache/Fever Or Mild Pain Last Admin: 01/08/20 15:38 Dose: 650 mg Documented by: Al Hydroxide/Mg Hydroxide (Mag-Al 1200 Mg/1200 Mg/30 Ml Udcup) 30 ml PO Q4H PRN PRN Reason: Indigestion Albuterol/Ipratropium (Ipratropium/Albuterol Sulfate 3 Ml Neb) 3 ml NEB [id number] PRN PRN Reason: SOB Amiodarone HCl (Amiodarone 200 Mg Tab) 200 mg PO BID [facility] Last Admin: 01/15/20 09:46 Dose: 200 mg Documented by: Aspirin (Aspirin 81 Mg Enteric Coated Tablet) 81 mg PO DAILY [facility] Last Admin: 01/15/20 09:46 Dose: 81 mg Documented by: Atorvastatin Calcium (Atorvastatin Calcium 10 Mg Tab) 10 mg PO QPM [facility] Last Admin: 01/14/20 21:09 Dose: 10 mg Documented by: Bisacodyl (Bisacodyl 5 Mg Tab) 10 mg PO Q12H PRN PRN Reason: Constipation Bisacodyl (Bisacodyl 10 Mg Supp) 10 mg PA Q12H PRN PRN Reason: Constipation Enoxaparin Sodium (Enoxaparin Sodium 30 Mg/0.3 Ml Syringe) 30 mg SC 2100 [facility] Last Admin: 01/14/20 21:09 Dose: 30 mg Documented by: Folic Acid (Folic Acid 1 Mg Tab) 1 mg PO DAILY [facility] Hydralazine HCl (Hydralazine 20 Mg/Ml Vial) 10 mg SLOW IVP Q6H PRN PRN Reason: To Maintain SBP< 140mmHG Hydralazine HCl (Hydralazine 25 Mg Tab) 25 mg PO NOW [facility] Stop: 01/11/20 02:15 Last Admin: 01/11/20 00:39 Dose: Not Given Documented by: Lisinopril (Lisinopril 5 Mg Tab) 5 mg PO BID [facility] Last Admin: 01/15/20 09:46 Dose: 5 mg Documented by: Metoprolol Tartrate (Metoprolol Tartrate 25 Mg Tab) 25 mg PO BID [facility] Last Admin: 01/15/20 09:46 Dose: 25 mg Documented by: Miscellaneous Medication (Electrolyte Replacement Protoc 1 Each Each) 1 each FS ASDIR [facility] Polyethylene Glycol (Polyethylene Glycol 3350 17 Gm Packet) 17 gm PO DAILY [facility] Last Admin: 01/15/20 09:46 Dose: 17 gm Documented by: Ziprasidone (Ziprasidone 20 Mg Vial) 10 mg IM Q4H PRN PRN Reason: Agitation Last Admin: 01/15/20 03:44 Dose: 10 mg Documented by: Ziprasidone (Ziprasidone 20 Mg Cap) 20 mg PO QAM-WM [facility] Last Admin: 01/15/20 09:46 Dose: 20 mg Documented by: Vital Signs & Weight: Vital Signs Temp Pulse Resp BP BP BP BP 01/15/20 11:13 98.4 F 63 18 109/53 L 01/15/20 09:46 58 L 01/15/20 09:19 108/53 L 123/56 L 01/15/20 07:40 98.2 F 58 L 13 01/15/20 03:35 98.1 F 63 12 160/70 H BP Pulse Ox 01/15/20 11:13 100 01/15/20 09:46 01/15/20 09:19 01/15/20 07:40 113/54 L 93 L 01/15/20 03:35 100 Weight 166 lb 4.8 oz - Physical Exam General: no apparent distress HEENT: mucus membranes moist Neck: supple neck Cardiac: regular rate and rhythm Lungs: clear to auscultation Neuro: grossly intact Abdomen: active bowel sounds Extremities: no edema Skin: clear Musculoskeletal: no pain - Labs Result Diagrams: 01/15/20 03:50 01/14/20 04:03 Troponin/CKMB Troponin I 0.016 ng/mL (< 0.028) 01/03/20 23:06 - Telemetry Sinus rhythms and dysrhythmias: sinus rhythm - Assessment/Plan Assessment/Plan: 1. Multivessel CAD. 2. S/P CABG x 4 3. Post op afib 4. Dementia. PLAN: - Continue current regimen. - Amiodarone at 200 mg BID for next 10 days then 200 mg daily. - PT as tolerated. - Placement when available.
[2020-01-15 12:50] VITALS: BMI 24.6
--- NOTE | 2020-01-15 18:29 | DIS ---
\ This is discharge summary addendum to Dr. Oreilly's discharge. DATE OF ADMISSION: 01/04/2020 DATE OF DISCHARGE: 01/15/2020 DISCHARGE DIAGNOSES: 1. CAD s/p CABG 2. Hypokalemia 3. Folate deficiency anemia (Please refer to Dr. Oreilly's d/c summary for other diagnoses) The patient was seen and examined on the day of discharge. He had no complaints at the time of discharge. He denied any chest pain or shortness of breath. BRIEF HOSPITAL COURSE: The patient presented with chest pain. He was found to have abnormal nuclear stress test. He underwent CABG. Postoperatively, he did well. The patient did have some episodes of confusion while in the hospital. He did require a sitter since he was impulsive. This appeared to be worst at night. The family is unable to take care of the patient at home, so he was accepted at [facility]. The family has agreed to pay for a private sitter and in the mean-time sit with him during the day at all times. [facility] DISCHARGE PHYSICAL EXAMINATION: VITAL SIGNS: Temperature 98.4, heart rate 63, respiratory rate 18, O2 saturation 100% on room air, and blood pressure 109/53. GENERAL: The patient is alert, awake, and oriented x3. CVS: Regular rate and rhythm with no murmurs, rubs, or gallops. LUNGS: Clear to auscultation bilaterally. ABDOMEN: Positive bowel sounds, soft, nontender, nondistended. EXTREMITIES: No edema. NEURO: Cranial nerves II through XII are intact. He has intermittent difficulty with comprehension. He is oriented x3. Labs/Imaging: Please refer to Dr. Oreilly's d/c summary DISCHARGE MEDICATIONS: New prescriptions: 1. Amiodarone 400 mg p.o. daily. 2. Aspirin 81 mg p.o. daily. 3. Folic acid 1 mg p.o. daily. 4. Geodon 20 mg oral daily. 5. Atorvastatin 10 mg daily. 6. Metoprolol 25 mg b.i.d. 7. Polyethylene glycol 17 g oral daily. 8. Lisinopril 5 mg oral twice daily. DISCHARGE INSTRUCTIONS: The [facility] will be [facility]. He will follow up with Dr. Soriano and Dr. Hollis as an outpatient. Follow up with PCP in 1 week. Job ID: [id number] [facility]
[2020-01-16] MEDS ORDERED: Folic Acid 1 MG TAB PO SCH (09:00)
== END 2020-01-15 15:20 | disposition swing bed (61) | DRG 233 ==
LOC: 2SW 20:02 → OBSVTOIN 01-04 19:48 → CCU 01-05 13:46 → IMCU/EMU 01-07 15:14 → 2NO 01-12 16:55
PROVIDERS: ADMIT Student in an Organized Health Care Education/Training Program; ATTEND Student in an Organized Health Care Education/Training Program
PROC: 02100Z9 Bypass Coronary Artery, One Artery from Left Internal Mammary, Open Approach (ICD-10-PCS; principal; 2020-01-05)
PROC: B2111ZZ Fluoroscopy of Multiple Coronary Arteries using Low Osmolar Contrast (ICD-10-PCS; 2020-01-05)
PROC: 021209W Bypass Coronary Artery, Three Arteries from Aorta with Autologous Venous Tissue, Open Approach (ICD-10-PCS; 2020-01-05)
PROC: 06BQ4ZZ Excision of Left Saphenous Vein, Percutaneous Endoscopic Approach (ICD-10-PCS; 2020-01-05)
PROC: 5A1221Z Performance of Cardiac Output, Continuous (ICD-10-PCS; 2020-01-05)
PROC: B2151ZZ Fluoroscopy of Left Heart using Low Osmolar Contrast (ICD-10-PCS; 2020-01-05)
PROC: 4A023N7 Measurement of Cardiac Sampling and Pressure, Left Heart, Percutaneous Approach (ICD-10-PCS; 2020-01-05)
DX: I25.10 Atherosclerotic heart disease of native coronary artery without angina pectoris (principal); G93.41 Metabolic encephalopathy; F05 Delirium due to known physiological condition; R07.9 Chest pain, unspecified; R91.1 Solitary pulmonary nodule; D64.9 Anemia, unspecified; L40.9 Psoriasis, unspecified; I48.0 Paroxysmal atrial fibrillation; D72.829 Elevated white blood cell count, unspecified; G30.9 Alzheimer's disease, unspecified; F02.80 Dementia in other diseases classified elsewhere, unspecified severity, without behavioral disturbance, psychotic disturbance, mood disturbance, and anxiety; E87.6 Hypokalemia; Z90.49 Acquired absence of other specified parts of digestive tract; Z20.828 Contact with and (suspected) exposure to other viral communicable diseases
CPT/HCPCS: 36415; 36416; 36430; 71045; 78452; 80048; 80061; 82607; 82746; 82805; 83735; 84100; 84132; 84443; 85014; 85018; 85025; 85610; 85730; 86850; 86900; 86901; 87635; 93005; 93010; 93017; 93458; 94002; 94150; 94760; 99152; 99153; A9500; G0378; J0153; J0282; J0690; J1160; J1265; J1642; J1644; J1650; J1815; J1885; J2001; J2060; J2250; J2270; J2440; J2704; J3010; J3370; J3475; J3480; J3486; J3490; J7030; J7070; P9045; P9047; Q9967; S0017; S0028; U0003

== ENCOUNTER 2020-01-17 03:11 | Observation (INO) | payer MEDICARE, OTHER ==
[2020-01-17] MEDS ORDERED: Acetaminophen 325 MG TAB PO PRN (05:14)
--- NOTE | 2020-01-17 05:22 | PDOC.HHP ---
Hospitalist HPI - History of Present Illness Fall History of Present Illness: 79-year-old gentleman with a history of coronary artery disease status post recent CABG, history of hypertension advanced dementia with behavioral disturbance had a fall at inpatient rehab and was sent to [facility] where patient noted to have laceration on the occipital region from the fall which was sutured. CT head showed no acute intracranial process. Patient recently had a CABG done. He developed acute delirium and agitation during the postop period which was treated with Precedex and Geodon. Patient was subsequently discharged to inpatient rehab with the understanding that the family will provide a 24-hour sitter. CT cervical spine done at [facility] reported a small pneumothorax which was not identified on the chest x-ray. Patient was subsequently transferred here for further evaluation. According to report family now stated he cannot provide the 24-hour sitter and was requesting disposition to another facility where they can take care of his agitation. Patient was calm and not agitated when I saw him in the ED. He is oriented only to himself. He had no complaint. He denied any pain Hospitalist ROS - Review of Systems Other: Except as documented, all other systems reviewed and negative. - Medication Medications: Medication Instructions Recorded Confirmed Type Donepezil HCl [Aricept] 10 mg PO HS 01/08/20 01/15/20 History Methylcellulose [Fiber] 500 mg PO DAILY 01/08/20 01/17/20 History Multivitamin With Minerals 1 tablet PO DAILY 01/08/20 01/15/20 History [Multiple Vitamin] Atorvastatin Calcium [Lipitor] 10 mg PO QPM tab 01/12/20 01/17/20 Rx Lisinopril [Zestril] 5 mg PO BID tab 01/12/20 01/17/20 Rx Metoprolol Tartrate [Lopressor] 25 mg PO BID tab 01/12/20 01/17/20 Rx Polyethylene Glycol 3350 [Miralax] 17 gm PO DAILY pk 01/12/20 01/17/20 Rx Ziprasidone [Geodon] 20 mg PO QAM-WM cap 01/12/20 01/17/20 Rx Aspirin [Ecotrin Low Strength] 81 mg PO DAILY #30 tab 01/13/20 01/17/20 Rx Folic Acid [Folvite] 1 mg PO DAILY #30 tab 01/15/20 01/17/20 Rx Amiodarone [Cordarone] 200 mg PO BID 01/17/20 01/17/20 History Ferrous Sulfate 325 mg PO DAILY 01/17/20 01/17/20 History Potassium Chloride [Klor-Con] 20 meq PO DAILY 01/17/20 01/17/20 History traZODone HCl [Trazodone HCl] 25 mg PO HS 01/17/20 01/17/20 History Hospitalist History - Past Medical History Cardiac: reports: CAD Other Medical History: Psoriasis, hypertension, dementia with behavioral disturbance. - Past Surgical History Past Surgical History: reports: CABG, Tonsillectomy - Family History Other Family History: Reviewed and noncontributory - Social History Smoking Status: Never smoker Alcohol: reports: None Drugs: reports: none - Exam General Appearance: NAD General - other findings: Awake Eye: PERRL, anicteric sclera ENT: no oropharyngeal lesions, moist mucosa ENT - other findings: Sutured laceration at occipital region. Neck: supple, symmetric, no JVD Heart: RRR, no murmur, no gallops Respiratory: CTAB, no wheezes, no rales, no ronchi Gastrointestinal: soft, non-tender, non-distended, normal bowel sounds Extremities: no cyanosis, no edema Skin: normal turgor, no rashes Neurological: cranial nerve grossly intact, no weakness, no focal deficits Musculoskeletal: normal tone, normal strength Psychiatric: oriented to person Psychiatric - other findings: Confused Hospitalist H&P A/P - Problem (1) Fall Code(s): W19.XXXA - UNSPECIFIED FALL, INITIAL ENCOUNTER Status: Acute (2) Dementia with behavioral disturbance Code(s): F03.91 - UNSPECIFIED DEMENTIA WITH BEHAVIORAL DISTURBANCE Status: Chronic (3) Paroxysmal atrial fibrillation with RVR Code(s): I48.0 - PAROXYSMAL ATRIAL FIBRILLATION Status: Chronic (4) CAD (coronary artery disease) Code(s): I25.10 - ATHSCL HEART DISEASE OF [place] CORONARY ARTERY W/O ANG PCTRS Status: Chronic (5) Occipital scalp laceration Code(s): S01.01XA - LACERATION WITHOUT FOREIGN BODY OF SCALP, INITIAL ENCOUNTER Status: Acute (6) S/P CABG (coronary artery bypass graft) Code(s): Z95.1 - PRESENCE OF AORTOCORONARY BYPASS GRAFT Status: Chronic (7) Pneumothorax Code(s): J93.9 - PNEUMOTHORAX, UNSPECIFIED Status: Acute Qualifiers: Pneumothorax type: postprocedural Qualified Code(s): J95.811 - Postprocedural pneumothorax - Plan Plan: Placed under observation. Supportive measures-pain management as needed. IV Haldol as needed for agitation. Continue [facility] Psychiatry consult if available. Case management to review discharge planning. Continue aspirin for CAD. Small pneumothorax not unexpected per CT surgery. Monitor. I was unable to discuss advanced care planning due to lack of capacity and no family member by his bedside.
[2020-01-17] MEDS ORDERED: Haloperidol Lactate 5 MG/ML VIAL SLOW IVP PRN (06:16)
[2020-01-17] MEDS ORDERED: Enoxaparin Sodium 40 MG/0.4 ML SYRINGE SC SCH ×2 (09:00→21:00)
[2020-01-17] MEDS: Aspirin 81 mg Enteric Coated Tablet PO SCH (09:35)
[2020-01-17] MEDS: Senokot S 8.6-50 MG TAB PO SCH (20:36)
[2020-01-17] MEDS: Lisinopril 5 MG TAB PO SCH (20:36)
[2020-01-17] MEDS: Amiodarone 200 MG TAB PO SCH (20:39)
[2020-01-17] MEDS: Metoprolol Tartrate 25 MG TAB PO SCH (20:39)
[2020-01-17] MEDS ORDERED: Atorvastatin Calcium 10 MG TAB PO SCH (21:00)
[2020-01-17] MEDS ORDERED: Metoprolol Tartrate 25 MG TAB PO SCH (21:00)
[2020-01-17] MEDS ORDERED: Lisinopril 5 MG TAB PO SCH (21:00)
[2020-01-17] MEDS ORDERED: traZODone HCl 50 MG TAB PO SCH (21:00)
[2020-01-18 06:02] LABS: #Eosinphils 0.1 thou/uL (0.0-0.7); #Lymphocytes 1.6 thou/uL (1.20-3.40); #Monocytes 0.6 thou/uL (0.11-0.59); #Neutrophils 3.7 thou/uL (1.40-6.50); %Basophils 0.6 % (0.0-1.0); %Eosinophils 1.6 % (0.0-10.0); %Lymphocytes 26.3 % (21.0-51.0); %Monocytes 9.6 % (0.0-10.0); Hemoglobin 10.1 g/dL (14.0-18.0); Mean Corpuscular HGB CONC 33.3 g/dL (32.0-36.0); Mean Corpuscular Hemoglobin 30.1 pg (27.0-31.0); Mean Corpuscular Volume 90.5 fL (78.0-98.0); Mean Platelet Volume 7.8 fL (7.4-10.4); Platelet Count 330 thou/uL (130-400); RBC Distribution Width 12.4 % (11.5-14.5); Red Blood Cell (RBC) Count 3.35 mill/uL (4.70-6.10)
[2020-01-18 06:26] LABS: Anion Gap 10 mmol/L (10-20); BUN (Urea Nitrogen) 12 mg/dL (8.4-25.7); Calc. Creatinine Clearance 53 mL/min (70-130); Calcium 7.8 mg/dL (7.8-10.44); Carbon Dioxide 26 mmol/L (23-31); Chloride 103 mmol/L (98-107); Estimated GFR-MDRD 72; Glucose 95 mg/dL (83-110); Magnesium 2.1 mg/dL (1.6-2.6); Sodium 135 mmol/L (136-145)
[2020-01-18] MEDS ORDERED: Ziprasidone 20 MG CAP PO SCH (08:00)
[2020-01-18] MEDS ORDERED: Multivitamin W/ Minerals 1 TAB PO SCH (09:00)
[2020-01-18] MEDS ORDERED: Polyethylene Glycol 3350 17 GM Packet PO SCH (09:00)
[2020-01-18] MEDS ORDERED: Citrucel 500 MG TAB PO SCH (09:00)
[2020-01-18] MEDS ORDERED: Folic Acid 1 MG TAB PO SCH (09:00)
[2020-01-18] MEDS ORDERED: Ferrous Sulfate 325 MG TAB PO SCH (09:00)
[2020-01-18] MEDS: Senokot S 8.6-50 MG TAB PO SCH (09:18)
[2020-01-18] MEDS: Aspirin 81 mg Enteric Coated Tablet PO SCH (09:19)
[2020-01-18] MEDS: Amiodarone 200 MG TAB PO SCH (09:20)
[2020-01-18] MEDS: Lisinopril 5 MG TAB PO SCH (09:25)
[2020-01-18] MEDS: Metoprolol Tartrate 25 MG TAB PO SCH (09:25)
[2020-01-18 14:24] VITALS: BMI 20.2
[2020-01-18 16:12] VITALS: BP 121/53; TEMP 98.6
--- NOTE | 2020-01-21 11:32 | DIS ---
DATE OF ADMISSION: 01/17/2020 DATE OF DISCHARGE: 01/18/2020 DISCHARGE DISPOSITION: Nursing Home Facility. The patient was seen and examined on the day of discharge. Denies any new complaints. No chest pain, shortness of breath, palpitations reported. Vital signs on the day of discharge showed temperature 98.8 with pulse rate of 75, respirations 20, blood pressure of 137/63 with O2 saturation 98% on room air. DISCHARGE MEDICATIONS: Same as admission medication. No changes were made. Fall precaution with 24 hour monitoring is recommended. Removal of the suture over the occipital region probably in 1 week. Primary care physician advised to follow. BRIEF HOSPITAL COURSE: The patient is a 79-year-old male, who was discharged from this facility after his recent coronary artery bypass grafting, presented to the emergency room after an episode of fall. He was found to have laceration on the occipital region that was sutured. Chest x-ray showed tiny pneumothorax seen on the left lung apex. The case was discussed with Dr. Soriano, cardiovascular who recommended outpatient followup. Pneumothorax was probably due to recent CABG. He was monitored overnight without any issues. He will be returning back to the assisted facility with 24 hour monitoring. Fall precaution was emphasized. The case was discussed with the patient and the family in detail. They stated understanding. FINAL DIAGNOSES: 1. Generalized weakness with mechanical fall. 2. Laceration over the occipital region number. 3. Tiny pneumothorax, probably related to recent coronary artery bypass grafting. 4. Coronary artery disease status post coronary artery bypass grafting on 05 January 2020. 5. Alzheimer dementia. 6. Paroxysmal atrial fibrillation, currently in sinus rhythm. 7. Chronic anemia, suspected due to nutritional deficiency. 8. Chronic kidney disease stage 2. 9. Hyponatremia. 10. Hyperlipidemia. 11. Hypertension. Job ID: [id number]
== END 2020-01-18 17:08 ==
LOC: ERS 03:11 → INTOOBSV 05:57 → T4-A 05:57
PROVIDERS: ADMIT Internal Medicine; ATTEND Internal Medicine
DX: S01.01XA Laceration without foreign body of scalp, initial encounter (principal); J95.811 Postprocedural pneumothorax; R53.1 Weakness; I25.10 Atherosclerotic heart disease of native coronary artery without angina pectoris; G30.9 Alzheimer's disease, unspecified; F02.81 Dementia in other diseases classified elsewhere, unspecified severity, with behavioral disturbance; I48.0 Paroxysmal atrial fibrillation; I12.9 Hypertensive chronic kidney disease with stage 1 through stage 4 chronic kidney disease, or unspecified chronic kidney disease; N18.2 Chronic kidney disease, stage 2 (mild); D63.1 Anemia in chronic kidney disease; E87.1 Hypo-osmolality and hyponatremia; E87.5 Hyperkalemia; L40.9 Psoriasis, unspecified; Z79.82 Long term (current) use of aspirin; Z79.899 Other long term (current) drug therapy; Z95.1 Presence of aortocoronary bypass graft; W18.30XA Fall on same level, unspecified, initial encounter
CPT/HCPCS: 80048; 83735; 85025; 97116; 97139 ×3; 99284; G0378 ×2; 36415